=== PATIENT | female | born 1945 | race Caucasian/White ===

== ENCOUNTER 2016-04-22 12:55 | Inpatient (IN) | payer MEDICAID ==
[~2016-04-22] VITALS: Ht 160 cm; Wt 64.4 kg
[~2016-04-22 12:55] MED LIST: CARAS PO; DOCU-144 PO; LAS20I PO; LISI-524 PO; PANT40TA4 PO; SPIR50TA PO
--- NOTE | 2016-04-22 13:05 | ERA ---
ER Documentation Chief Complaint Date/Time DATE: 04/22/16 TIME: 13:04 Chief Complaint SOB AND GENERALIZED WEAKNESS X 3 DAYS HPI The patient is 70-year-old female, presenting to the ER because of shortness of breath for the last 3 weeks, associated with leg edema, dyspnea on exertion, fatigue for the last 3 days. She has similar symptoms previously. He was seen in the clinic 3 days ago for similar symptoms and advised to go to the ER. She denies fever, nasal congestion, complains of chronic cough for more than 2 month , denies chest pain, abdominal pain, dysuria, diarrhea. She does not smoke, drink Past medical history: Hypertension, autoimmune cirrhosis, history of gastric ulcer, history of hepatic mass that is concerning for hepatocellular carcinoma on last admission August 2014, however she did not follow-up with her liver specialist Past surgical history: None ROS All systems reviewed and are negative except as per history of present illness. Medications Home Meds Active Scripts Pantoprazole (Protonix) 40 Mg Tabec, 40 MG PO BID for 30 Days, TAB Prov:SILVIANO PAREDES MD 08/16/14 Reported Medications Lisinopril* (Lisinopril*) 20 Mg Tablet, 20 MG PO DAILY, #30 TAB 04/22/16 Spironolactone* (Aldactone*) 50 Mg Tablet, 50 MG PO BID, #60 TAB 04/22/16 Furosemide* (Furosemide*) 20 Mg Tablet, 20 MG PO DAILY, #60 TAB 04/22/16 Discontinued Scripts Sucralfate* (Carafate*) 1 Gm/10 Ml Susp, 1 GM PO QID for 30 Days, BOTTLE Prov:SILVIANO PAREDES MD 08/16/14 Spironolactone* (Aldactone*) 50 Mg Tab, 100 MG PO BID DIURETICS for 30 Days, TAB Prov:SILVIAON PAREDES MD 08/16/14 Lisinopril* (Zestril*) 10 Mg Tab, 5 MG PO DAILY for 30 Days, TAB Prov:SILVIANO PAREDES MD 08/16/14 Furosemide* (Lasix*) 10 Mg/Ml Soln, 40 MG PO DAILY for 30 Days, TAB Prov:SILVIANO PAREDES MD 08/16/14 Docusate Sodium* (Colace*) 100 Mg Cap, 100 MG PO BID for 30 Days, TAB Prov:SILVIANO PAREDES MD 08/16/14 Allergies Allergies: Coded Allergies: No Known Allergy (Unverified , 04/22/16) PMhx/Soc History of Surgery: No Anesthesia Reaction: No Hx Neurological Disorder: No Hx Respiratory Disorders: No Hx Cardiac Disorders: Yes (HTN) Hx Psychiatric Problems: No Hx Miscellaneous Medical Probl: No Hx Alcohol Use: Yes Hx Substance Use: No Hx Tobacco Use: Yes Physical Exam Vitals Vital Signs Date Time Temp Pulse Resp B/P Pulse Ox O2 Delivery O2 Flow Rate FiO2 04/22/16 15:35 88 24 135/61 100 Nasal Cannula 2.0 04/22/16 13:35 Nasal Cannula 2 04/22/16 12:59 100.6 106 20 135/60 99 Physical Exam Const: No acute distress. Head: Atraumatic. Eyes: Normal Conjunctiva. ENT: Normal External Ears, Nose and Mouth. Neck: Full range of motion. No meningismus. Resp: Bibasilar crackles Cardio: Regular rate and rhythm, no murmurs. Abd: Soft, non distended, normal bowel sounds, non tender. Skin: No petechiae or rashes. Back: No midline or flank tenderness. Ext: Bilateral leg edema, no calf tenderness Neur: Awake and alert. No focal deficit Psych: Normal Mood and Affect. Result Diagram: 04/22/16 1330 04/22/16 1330 Results 24 hrs Laboratory Tests Test 04/22/16 13:30 04/22/16 13:55 04/22/16 15:15 Activated Partial Thromboplast Time 36.8Sec Alanine Aminotransferase (ALT/SGPT) 20IU/L Albumin 2.4g/dl Albumin/Globulin Ratio 0.66 Alkaline Phosphatase 108IU/L Anion Gap 13 Aspartate Amino Transf (AST/SGOT) 24IU/L B-Type Natriuretic Peptide 694PG/ML Basophils # 0.010^3/ul Basophils % 0.0% Blood Morphology Comment Blood Urea Nitrogen 10mg/dl Calcium Level 7.8mg/dl Carbon Dioxide Level 22mmol/L Chloride Level 110mmol/L Creatinine 0.45mg/dl Direct Bilirubin 0.00mg/dl Eosinophils # 0.010^3/ul Eosinophils % 0.0% Globulin 3.60g/dl Glucose Level 118mg/dl Hematocrit 15.6% Hemoglobin 4.7g/dl INR International Normalized Ratio 1.66 Indirect Bilirubin 0.6mg/dl Lactic Acid Level 3.4mmol/L 2.8mmol/L Lymphocytes # 0.410^3/ul Lymphocytes % 16.0% Mean Corpuscular Hemoglobin 20.0pg Mean Corpuscular Hemoglobin Concent 29.8g/dl Mean Corpuscular Volume 67.2fl Mean Platelet Volume 11.8fl Monocytes # 0.210^3/ul Monocytes % 8.0% Neutrophils # 1.910^3/ul Neutrophils % 76.0% Nucleated Red Blood Cells # 0.110^3/ul Nucleated Red Blood Cells % 4.6/100WBC Platelet Count 8510^3/UL Potassium Level 3.4mmol/L Prothrombin Time 19.7Sec Prothrombin Time Ratio 1.5 Red Blood Count 2.3210^6/ul Red Cell Distribution Width 18.8% Sodium Level 142mmol/L Total Bilirubin 0.6mg/dl Total Protein 6.0g/dl Troponin I 0.241ng/ml White Blood Count 2.510^3/ul Bedside Urine Blood Negative Bedside Urine Glucose (UA) Negative Bedside Urine Ketones (LAB) Negative Bedside Urine Leukocyte Esterase (L 1+ Bedside Urine Nitrite (LAB) Positive Bedside Urine Protein (LAB) 2+ Bedside Urine pH (LAB) 6.0 Current Medications Medications (Trade) Dose Ordered Sig/Fran Route PRN Reason Start Time Stop Time Status Last Admin Dose Admin Acetaminophen 650 mg 650 mg ONCE ONCE PO 04/22/16 13:30 04/22/16 13:31 DC 04/22/16 13:57 Piperacillin Sod/ Tazobactam Sod 100 ml @ 200 mls/hr ONCE ONCE IVPB 04/22/16 14:30 04/22/16 14:59 DC 04/22/16 14:38 Potassium Chloride/Sodium Chloride (KCl/NS) 110 ml @ 55 mls/hr ONCE ONCE IVPB 04/22/16 14:30 04/22/16 16:29 04/22/16 15:18 Furosemide 40 mg 40 mg ONCE ONCE IV 04/22/16 15:00 04/22/16 15:01 DC 04/22/16 14:55 Octreotide Acetate 1 mg/ Sodium Chloride 100 ml @ 5 mls/hr Q20H IV 04/22/16 15:00 04/22/16 15:18 Pantoprazole 80 mg/Sodium Chloride 100 ml @ 10 mls/hr Q10H IV 04/22/16 15:00 04/22/16 15:57 Pantoprazole 80 mg/Sodium Chloride 100 ml @ 400 mls/hr ONCE ONCE IVPB 04/22/16 15:00 04/22/16 15:14 DC 04/22/16 15:18 Pantoprazole 80 mg/Sodium Chloride 100 ml @ 400 mls/hr ONCE STAT IVPB 04/22/16 14:56 04/22/16 15:10 UNV Pantoprazole 80 mg/Sodium Chloride 100 ml @ 10 mls/hr ONCE STAT IV 04/22/16 14:56 04/23/16 00:55 UNV Octreotide Acetate 50 mcg/ Sodium Chloride 26 ml @ 100 mls/hr Q16M STAT IVPB 04/22/16 14:56 04/22/16 15:11 UNV Octreotide Acetate/Sodium Chloride (Sandostatin/NS) 50 ml @ 5 mls/hr ONCE STAT IV 04/22/16 14:56 04/23/16 00:55 UNV IV Flush (NS 3 ml) 3 ml PER PROTOCOL IV 04/22/16 15:30 Lorazepam (Ativan) 0.5 mg Q6H PRN IV ANXIETY 04/22/16 15:30 Acetaminophen/ Hydrocodone Bitart ([place] (5/325)) 1 tab Q6H PRN PO PAIN LEVEL 4-6 04/22/16 15:30 Morphine Sulfate (morphine) 2 mg Q4H PRN IV PAIN LEVEL 7-10 04/22/16 15:30 Hydralazine HCl (Apresoline) 10 mg Q6H PRN IV SBP>160 04/22/16 16:00 Lisinopril (Zestril) 20 mg DAILY PO 04/23/16 09:00 Spironolactone (Aldactone) 50 mg BID PO 04/22/16 21:00 Furosemide 20 mg 20 mg BID DIURETICS IV 04/22/16 18:00 Ceftriaxone Sodium 50 ml @ 100 mls/hr Q24H IVPB 04/22/16 16:30 Octreotide Acetate 1 mg/ Sodium Chloride 100 ml @ 5 mls/hr Q20H IV 04/22/16 16:30 UNV Pantoprazole/ Sodium Chloride (Protonix Iv/NS) 100 ml @ 10 mls/hr Q10H IV 04/22/16 16:30 UNV Procedures/MDM EKG: Read by emergency physician Rate/Rhythm: Sinus tachycardia 109 beats per min QRS, ST, T-waves: Inferior lateral ST and T abnormality, no PVCs Impression: Abnormal EKG [place] [id number] Radiology Main Line: [phone] DIAGNOSTIC IMAGING REPORT Patient: TYSHAWN BOLES : 1945 Age: 70 Sex: F MR #: [id number] DOS: 04/22/16 1322 Ordering MD: CHIQUITA LEVY MD Location: E/R Room/Bed: PROCEDURE: XR Chest. CLINICAL INDICATION: Sepsis TECHNIQUE: Single AP portable chest COMPARISON: 09/22/2014 FINDINGS: The cardiac silhouette is enlarged with vascular congestion. This has accentuated by hypo ventilatory changes. . No focal consolidation or pleural effusion. No pneumothorax. Elevation right hemidiaphragm. The osseous structures and soft tissues are unremarkable. IMPRESSION: Cardiomegaly and vascular congestion. Superimposed infiltrate cannot be excluded. RPTAT:AAJJ Physician Adali Date Time Electronically viewed and signed by Physician Adali on 04/22/2016 14:17 FLAQUITO/ CC: CHIQUITA LEVY MD MEDICAL MAKING DECISION: The patient is a 70-year-old female, presenting to the ER because of acute severe sepsis, acute CHF exacerbation, acute GI bleed, pancytopenia, acute hypokalemia, acute cystitis, coagulopathy. She was treated with Tylenol and for fever upon arrival to the ER. She was treated with 4 units of packed red blood cell due to severe anemia from acute GI bleed. I have ordered to administer Lasix 40 mg IV after each unit of packed red blood cell. She was treated with potassium chloride 20 medical and IV for low potassium, Zosyn IV due to acute severe sepsis from acute cystitis. She was treated with Protonix IV bolus and Protonix drip, octreotide IV bolus and octreotide drip due to probable acute GI bleed. The differential diagnoses considered include but are not limited to pneumonia, pyelonephritis, septic shock. Consultation: I discussed the patient with the on-call gas booster engineer Dr. Yao was made aware of the lab, the treatment, the patient condition and agreed with the plan Admit MDM: Patient's infectious symptoms have not stabilized and the patient is at risk of rapid decompensation. The patient will be admitted for careful hydration, antibiotic therapy, and infectious source control. Severe Sepsis criteria: Infectious source: UTI End organ damage indicated by: Lactate > 2.0 mmol/L Sepsis Management: Time of recognition of severe sepsis/septic shock:Upon arrival Within 3 hours of recognition: Blood cultures x 2 before broad-spectrum antibiotics: Yes 30 ml/kg NS bolus not completed because of acute CHF Initial lactate 3.4 Repeat lactate pending Critical Care: Critical care time 35 minutes Emergent fluid management while maintaining close respiratory support. Provision of immediate and broad-spectrum antibiotic therapy. Simultaneous assessment for possible sources in order to direct targeted therapy. Consideration for invasive and chemical support to prevent cardiopulmonary collapse. Septic Shock Assessment: Any lactic acid > 4.0 no Persistent hypotension (SBP < 90 or 40 mmHg drop, MAP < 65) despite 30 mL/kg IV fluid bolusno Departure Diagnosis: Primary Impression: Acute GI bleeding Additional Impressions: Severe sepsis UTI (urinary tract infection) CHF (congestive heart failure) Hypokalemia Pancytopenia Coagulopathy Condition: Critical Comments I discussed the findings with the patient. I discussed the patient with the on- call hospitalist Dr. Doyle who was made aware of the lab, the treatment, the patient condition and my discussion with the gastroenterology. The patient is admitted to ICU at 2:30 PM CHIQUITA LEVY MD Apr 22, 2016 13:05
[2016-04-22] MEDS ORDERED: ACETAMINOPHEN 325 MG TAB PO ONE (13:30)
[2016-04-22] MEDS ORDERED: FURO20TA3 PO (13:48)
[2016-04-22] MEDS ORDERED: SPIR50TA PO (13:49)
[2016-04-22] MEDS ORDERED: LISI20TA11 PO (13:50)
[2016-04-22 13:52] LABS: HEMATOCRIT 15.6 % (37.0-47.0); MEAN CORPUSCULAR HGB CONC 29.8 g/dl (32.0-37.0); MEAN CORPUSCULAR VOLUME 67.2 fl (82.0-101.0); MEAN PLATELET VOLUME 11.8 fl (7.4-10.4); MONOCYTE # 0.2 10^3/ul (0.3-0.9); NUCLEATED RED BLOOD CELLS% 4.6 /100WBC (0.0-0.0); PLATELET COUNT 85 10^3/UL (140-440); RED BLOOD COUNT 2.32 10^6/ul (4.20-5.40); RED CELL DISTRIBUTION WIDTH 18.8 % (11.5-14.5); UNCORRECTED WBC 2.5 10^3/ul (4.8-10.8); WHITE BLOOD COUNT 2.5 10^3/ul (4.8-10.8)
[2016-04-22 13:54] LABS: URINE BLOOD (Dip) POC Negative (NEGATIVE)
[2016-04-22 14:01] LABS: INR 1.66; PROTIME 19.7 Sec (12.2-14.2); PT RATIO 1.5
[2016-04-22 14:02] LABS: PARTIAL THROMBOPLASTIN TIME 36.8 Sec (25.0-35.0)
[2016-04-22 14:09] LABS: ALBUMIN 2.4 g/dl (3.3-4.9)
[2016-04-22 14:10] LABS: CONDITION 1; HEMOGLOBIN 4.7 g/dl (12.0-16.0); LH ANALYZER COMMENTS 1; NUCLEATED RED BLOOD CELLS # 0.1 10^3/ul (0.0-0.0); POTASSIUM 3.4 mmol/L (3.5-5.1); SUSPECT 1
[2016-04-22 14:12] LABS: ALBUMIN/GLOBULIN RATIO 0.66; BILIRUBIN,INDIRECT 0.6 mg/dl (0-1.1); BILIRUBIN,TOTAL 0.6 mg/dl (0.2-1.3); CALCIUM 7.8 mg/dl (8.4-10.2); CREATININE 0.45 mg/dl (0.44-1.00)
--- NOTE | 2016-04-22 14:18 | RADRPT ---
PROCEDURE: XR Chest. CLINICAL INDICATION: Sepsis TECHNIQUE: Single AP portable chest COMPARISON: 09/22/2014 FINDINGS: The cardiac silhouette is enlarged with vascular congestion. This has accentuated by hypo ventilato ry changes. . No focal consolidation or pleural effusion. No pneumothorax. Elevation right hemidi aphragm. The osseous structures and soft tissues are unremarkable. IMPRESSION: Cardiomegaly and vascular congestion. Superimposed infiltrate cannot be excluded. RPTAT:AAJJ Physician Adali Date Time Electronically viewed and signed by Physician Adali on 04/22/2016 14:17 FLAQUITO/
[2016-04-22 14:27] LABS: TROPONIN-I 0.241 ng/ml (0.00-0.12)
[2016-04-22] MEDS ORDERED: PIPER-TAZO 3.375 GM IV (PMX) 100 ML IVPB ONE (14:30)
[2016-04-22] MEDS ORDERED: POTASSIUM CHLORIDE 20 MEQ in SOD CHLORIDE 0.9% 100 ML IVPB ONE (14:30)
[2016-04-22] MEDS ORDERED: PANTOPRAZOLE IV 80 MG in SOD CHLORIDE 0.9% 100 ML IV STA (14:56)
[2016-04-22] MEDS ORDERED: PANTOPRAZOLE IV 80 MG in SOD CHLORIDE 0.9% 100 ML IVPB STA (14:56)
[2016-04-22] MEDS ORDERED: OCTREOTIDE 50 MCG in SOD CHLORIDE 0.9% 25 ML IVPB STA (14:56)
[2016-04-22] MEDS ORDERED: OCTREOTIDE 500 MCG in SOD CHLORIDE 0.9% 49 ML IV STA (14:56)
[2016-04-22] MEDS ORDERED: PANTOPRAZOLE IV 80 MG in SOD CHLORIDE 0.9% 100 ML IVPB ONE (15:00)
[2016-04-22] MEDS ORDERED: FUROSEMIDE 40 MG INJ IV ONE (15:00)
[2016-04-22 15:09] LABS: LYMPHOCYTES # 0.4 10^3/ul (0.8-2.9); NEUTROPHIL # 1.9 10^3/ul (1.6-7.5)
[2016-04-22] MEDS: OCTREOTIDE 1 MG in SOD CHLORIDE 0.9% 95 ML IV SCH (15:18)
[2016-04-22] MEDS ORDERED: NACL 0.9% 3 ML SYG IV SCH (15:30)
[2016-04-22] MEDS ORDERED: LORAZEPAM 2 MG INJ IV PRN (15:30)
[2016-04-22] MEDS ORDERED: HYDROCODONE/APAP (5/325) TAB PO PRN (15:30)
[2016-04-22] MEDS ORDERED: morphine 2 MG INJ IV PRN (15:30)
[2016-04-22] MEDS: PANTOPRAZOLE IV 80 MG in SOD CHLORIDE 0.9% 100 ML IV SCH (15:57)
--- NOTE | 2016-04-22 16:02 | CONS ---
Date/Time of Note Date/Time of Note DATE: 04/22/16 TIME: 15:55 Assessment/Plan Assessment/Plan Additional Assessment/Plan Acute anemia * EGD with Dr. Yao once cardiac clearance is obtained * Monitor hemoglobin every 6 hours, transfuse 2 units for hemoglobin less than 7.5 * Continue Protonix and octreotide drips * Stool OB 2 * Sp Colonoscopy 08/15/2014, results: * Questionable proctitis versus preparation artifact. Biopsies obtained. * Mild diverticulosis, left side of the colon. * Moderate-sized internal hemorrhoids. * Sp EGD 08/14/2014, results: * Grade 1/4 esophageal varices. * Multiple gastric ulcers, body and antrum of the stomach. Benign endoscopic appearance, no evidence of recent bleeding. Hypertension Further recommendations depend on clinical course Patient seen in collaboration with Dr. Yao Consultation Date/Type/Reason Admit Date/Time Type of Consultation: Gastroenterology Reason for Consultation Severe anemia Hx of Present Illness 62-year-old female resented to ED with reports of chest pain, and lethargy since 4 AM in the morning. Per patient's daughter, patient went to clinic and advised to follow-up in the emergency room due to low hemoglobin. Patient presented in the a.m. after experiencing intense chest pain and weakness. Denies previous episode. Patient denies melena, abdominal pain, nausea, vomiting, alcohol use, hematuria, and hematemesis. Patient denies previous colonoscopy. Patient with past medical history of hypertension that is controlled with medication. Denies other chronic condition. Recommend EGD after cardiac clearance obtained. Patient advised of risks/benefits/ alternatives of procedure and patient and patient's daughter are agreeable to proceed. Past Medical History Medical History: hypertension Social History Smoking Status: Current some day smoker Exam/Review of Systems Vital Signs Vitals Vital Signs Date Time Temp Pulse Resp B/P Pulse Ox O2 Delivery O2 Flow Rate FiO2 04/22/16 15:35 88 24 135/61 100 Nasal Cannula 2.0 04/22/16 12:59 100.6 Exam Constitutional: alert, oriented, well developed Psych: nl mood/affect Head: normocephalic Eyes: EOMI ENMT: nl external ears & nose, nl lips & teeth, nl nasal mucosa & septum Respiratory: normal air movement Cardiovascular: regular rate and rhythm Gastrointestinal: non-tender, soft Neurological: JOB DEVELOPER II-XII intact Results Result Diagram: 04/22/16 1330 04/22/16 1330 Results 24 hrs Laboratory Tests Test 04/22/16 13:30 04/22/16 13:55 04/22/16 15:15 Activated Partial Thromboplast Time 36.8 H Alanine Aminotransferase (ALT/SGPT) 20 Albumin 2.4 L Albumin/Globulin Ratio 0.66 Alkaline Phosphatase 108 Anion Gap 13 Aspartate Amino Transf (AST/SGOT) 24 B-Type Natriuretic Peptide 694 H Basophils # Pending Basophils % Pending Blood Morphology Comment Blood Urea Nitrogen 10 Calcium Level 7.8 L Carbon Dioxide Level 22 Chloride Level 110 Creatinine 0.45 Direct Bilirubin 0.00 Eosinophils # Pending Eosinophils % Pending Globulin 3.60 H Glucose Level 118 Hematocrit 15.6 #L Hemoglobin 4.7 #*L INR International Normalized Ratio 1.66 Indirect Bilirubin 0.6 Lactic Acid Level 3.4 H 2.8 H Lymphocytes # 0.4 L Lymphocytes % 16.0 Mean Corpuscular Hemoglobin 20.0 #L Mean Corpuscular Hemoglobin Concent 29.8 L Mean Corpuscular Volume 67.2 #L Mean Platelet Volume 11.8 H Monocytes # 0.2 L Monocytes % 8.0 Neutrophils # 1.9 Neutrophils % 76.0 Nucleated Red Blood Cells # 0.1 H Nucleated Red Blood Cells % 4.6 H Platelet Count 85 L Potassium Level 3.4 L Prothrombin Time 19.7 H Prothrombin Time Ratio 1.5 Red Blood Count 2.32 #L Red Cell Distribution Width 18.8 H Sodium Level 142 Total Bilirubin 0.6 Total Protein 6.0 L Troponin I 0.241 *H White Blood Count 2.5 #L Bedside Urine Blood Negative Bedside Urine Glucose (UA) Negative Bedside Urine Ketones (LAB) Negative Bedside Urine Leukocyte Esterase (L 1+ H Bedside Urine Nitrite (LAB) Positive H Bedside Urine Protein (LAB) 2+ H Bedside Urine pH (LAB) 6.0 Medications Medications Current Medications Potassium Chloride 20 meq/ Sodium Chloride 110 ml @ 55 mls/hr ONCE ONCE IVPB Last administered on 04/22/16 15:18; Admin Dose 55 MLS/HR; Start 04/22/16 at 14 :30; Stop 04/22/16 at 16:29 Octreotide Acetate 1 mg/ Sodium Chloride 100 ml @ 5 mls/hr Q20H IV Last administered on 1/24/17at 15:18; Admin Dose 5 MLS/HR; Start 04/22/16 at 15:00 Pantoprazole/ Sodium Chloride (Protonix Iv/NS) 100 ml @ 10 mls/hr Q10H IV ; Start 04/22/16 at 15:00 Lorazepam (Ativan) 0.5 mg Q6H PRN IV ANXIETY; Start 04/22/16 at 15:30 Acetaminophen/ Hydrocodone Bitart ([place] (5/325)) 1 tab Q6H PRN PO PAIN LEVEL 4 -6; Start 04/22/16 at 15:30 Morphine Sulfate (morphine) 2 mg Q4H PRN IV PAIN LEVEL 7-10; Start 04/22/16 at 15:30 Hydralazine HCl (Apresoline) 10 mg Q6H PRN IV SBP>160; Start 04/22/16 at 16:00 Lisinopril (Zestril) 20 mg DAILY PO ; Start 04/23/16 at 09:00 Spironolactone (Aldactone) 50 mg BID PO ; Start 04/22/16 at 21:00 OSMEL YAO MD Apr 22, 2016 16:02
[2016-04-22] MEDS ORDERED: PANTOPRAZOLE IV 80 MG in SOD CHLORIDE 0.9% 100 ML IV SCH (16:30)
[2016-04-22] MEDS ORDERED: OCTREOTIDE 1 MG in SOD CHLORIDE 0.9% 95 ML IV SCH (16:30)
[2016-04-22 16:42] LABS: HEMOGLOBIN 5.1 g/dl (12.0-16.0)
--- NOTE | 2016-04-22 17:13 | RADRPT ---
PROCEDURE: Ultrasound of the bilateral lower extremity venous system. CLINICAL INDICATION: Bilateral leg pain and swelling, deep venous thrombosis TECHNIQUE: Lopez scale with and without compression, color doppler, spectral doppler of the venous system of the bilateral lower extremities was performed. Venous augmentation maneuvers were utilized . COMPARISON: No prior studies are available for comparison. FINDINGS: RIGHT: Common femoral vein: Patent. Superficial femoral vein: Patent. Popliteal vein: Patent. Calf veins: Patent. No soft tissue abnormalities are identified. LEFT: Common femoral vein: Patent. Superficial femoral vein: Patent. Popliteal vein: Patent. Calf veins: Patent. No soft tissue abnormalities are identified. IMPRESSION: No evidence of a deep vein thrombosis within the bilateral lower extremities. RPTAT: AADD .Bert Nj MD, Date Time Electronically viewed and signed by .Bert Nj MD, on 04/22/2016 17:13 .B/
--- NOTE | 2016-04-22 17:44 | RADRPT ---
Echocardiogram Report Patient Name: TYSHAWN BOLES Gender: Female Date: 1945 Study Date: 22-Apr-2016 Document Control Assistant: Shaan Deluca RDCS Location: [facility] Ref. Physician: SAMUEL HELMS Quality: Technically Difficult Study Procedures: Transthoracic echocardiogram with complete 2D, M-Mode, and doppler examination. Indications: Chest Pain. 2D/M Mode Doppler Measurement Value Normal Ranges Measurement Value Normal Ranges LVIDd 2D 5.0 3.5 - 5.6 cm AV Peak Imtiaz 1.8 m/sec LVIDs 2D 2.9 2.1 - 4.1 cm AV Peak PG 13.0 mmHg FS 2D 42.3 % LVOT Peak Imtiaz 1.4 m/sec LVPWd 2D 1.0 0.6 - 1.1 cm LVOT Peak PG 8.0 mmHg IVSd 2D 0.8 0.6 - 1.1 cm MV E Peak Imtiaz 0.7 m/sec IVS/LVPW 2D 0.9 MV A Peak Imtiaz 1.0 m/sec AoR Diam 2D 2.4 2.0 - 3.7 cm MV E/A 0.7 LA/Ao 2D 2 0 - 1 MV Decel Time 162 msec EDV 2D 122.0 cm3 MV E/A 0.7 ESV 2D 23.4 cm3 TR Peak Imtiaz 2.7 m/sec LA Dimen 2D 4.1 2.3 - 4.0 cm TR Peak PG 30.0 mmHg RVSP 33.0 mmHg Findings Left Ventricle: Normal left ventricular systolic function. Normal left ventricular cavity size. Normal left ventricular wall thickness. Ejection fraction is visually estimated at 5560 %. Tissue Doppler/Mitral Doppler indices are consistent with impaired relaxation (Stage I diastolic dysfunction). Right Ventricle: Normal right ventricular size. Normal right ventricular systolic function. Left Atrium: There is mild enlargement of left atrium. Right Atrium: The right atrium is normal in size. Mitral Valve: Mitral valve leaflets appear mildly thickened. Mild mitral annular calcification. Trace mitral regurgitation. Aortic Valve: No hemodynamically significant aortic stenosis by doppler. Aortic cusps appear mildly calcified. Trace aortic valve regurgitation. Tricuspid Valve: Normal appearance of the tricuspid valve. Estimated peak PA systolic pressure 33 mmHg. There is trace tricuspid regurgitation. Pericardium: Normal pericardium with no significant pericardial effusion. Aorta: Normal aortic root. IVC: Normal size and normal respiratory collapse consistent with normal right atrial pressure. Conclusions 1.The left ventricle is normal in size and systolic function. 2.Estimated left ventricular ejection fraction of 55-60%. 3.Mild left ventricular diastolic dysfunction. 4.Mild left atrial enlargement. Electronically Signed By: Ezio Tang 22-Apr-2016 17:43:14 -0800 Patient Name: TYSHAWN BOLES Study Date: 22-Apr-[id number]
[2016-04-22] MEDS: CEFTRIAXONE 1 GM/50 ML (PMX) 50 ML IVPB SCH (18:02)
--- NOTE | 2016-04-22 18:02 | HP ---
DATE OF ADMISSION: 04/22/2016 TIME OF EVALUATION: 1515. REASON FOR ADMISSION: Dyspnea, chest pain, and generalized weakness. Symptomatic anemia. CONSULTANTS 1. Dr. Casey Yao, gastroenterology. 2. Dr. Ezio Tang, Cardiology. HISTORY OF PRESENT ILLNESS: This is a 70-year-old female with a past medical history of essential hypertension, autoimmune liver cirrhosis, esophageal varices, and gastric ulcers who came to the emergency room with chief complaint of dyspnea, generalized weakness and chest pain that has been going on since 04/18/2016. As per the patient, she went see her primary care physician on 04/18/2016. At that time, she was told that her hemoglobin level was low. However, the patient does not remember what exactly her hemoglobin level was. On 04/18/2016, the patient was instructed to go to the nearest emergency room. Nevertheless, the patient did not seek immediate medical attention on 04/18/2016 until she arrived at the [facility] Emergency Room. The patient was complaining of chest pain. The patient's chest pain was nonspecific. The patient was complaining of dyspnea that was more with exertion. She was also complaining of bilateral lower extremity edema. The patient denied any nausea or vomiting. She denied any hematemesis, hematochezia, or melena. She denied any fevers or chills. The patient's initial workup showed that the patient has a significant anemia with a hemoglobin and hematocrit of 4.7 and 15.6 respectively. The patient was also noted to have lactic acidosis. Patient's initial troponin was 0.241 with a BNP of 694. The patient's chest x-ray showed cardiomegaly and vascular congestion. The patient was also noticed to have a febrile episode with temperature 100.6 in the emergency room. In the emergency room, the patient was given a single dose of Zosyn and Lasix. She was started on a Protonix drip and octreotide drip. PAST MEDICAL HISTORY: Essential hypertension autoimmune, liver cirrhosis, gastric ulcer, esophageal varices. PAST SURGICAL HISTORY: Denies. HOME MEDICATIONS: 1. Carafate 1 g p.o. q.i.d. 2. Protonix 40 mg p.o. b.i.d. 3. Aldactone 100 mg p.o. b.i.d. 4. Lisinopril 5 mg p.o. daily. 5. Lasix 40 mg p.o. daily. 6. Colace 100 mg p.o. b.i.d. ALLERGIES: NO KNOWN DRUG ALLERGIES. SOCIAL HISTORY: The patient lives at home with her family. Denies any history of tobacco, alcohol or illicit drug use. REVIEW OF SYSTEMS: A 12-point review of systems reviewed and was negative other than what is mentioned in history of present illness. PHYSICAL EXAMINATION: VITAL SIGNS: Temperature 100.6, pulse rate 88, respiratory rate 24, blood pressure 135/61, oxygen saturation 100% on 2 liters of oxygen via nasal cannula. GENERAL: This is an elderly female patient lying in bed in mild to moderate respiratory distress. HEENT: Head normocephalic and atraumatic. Eyes: Anicteric sclerae. Conjunctivae clear. ENT: Nasal septum is midline. Oral mucosa is dry. NECK: Supple. JVD noticed at 45 degrees. RESPIRATORY: Bilaterally diminished breath sounds. Minimal use of accessory muscles of respiration. Bilateral fine rales heard at the bases. CARDIAC: Regular rate and rhythm. No obvious murmurs heard. ABDOMEN: Abdomen soft, nondistended. Bowel sounds hypoactive in all 4 quadrants. GENITOURINARY: Deferred. EXTREMITIES: No cyanosis, no clubbing. Bilateral lower extremity 2 to 3+ pitting edema. Peripheral pulses are palpable. NEUROLOGIC: The patient is awake, alert and oriented. Cranial nerves are grossly intact. LABORATORY AND DIAGNOSTIC DATA: WBC 2.5, hemoglobin 4.7, hematocrit 15.6, platelet count 85. Sodium 142, potassium 3.4, chloride 110, carbon dioxide 22, anion gap 13, BUN 10, creatinine 0.45, glucose 118. Calcium 7.8. Lactic acid 3.4. AST 24, ALT 20, alkaline phosphatase 208. Troponin 0.0241. BNP 694, total protein 6.0, albumin 2.4. PT 19.7, INR 1.26, PTT 36.8. Urinalysis: Urine nitrite positive, urine leukocyte esterase 1+. Chest x-ray: Cardiomegaly and vascular congestion. A superimposed infiltrate cannot be excluded. IMPRESSION: This is a 70-year-old female patient who came to the emergency room with multiple complaints and who was found to have evidence of significant anemia who will be admitted here for further treatment and evaluation. ASSESSMENT AND PLAN: 1. Symptomatic microcytic, hypochromic anemia. Etiology unclear. The patient has prior history of bleeding esophageal varices. However, the patient denied any active bleeding at this time. Nevertheless, since the patient has history of bleeding esophageal varices and gastric ulcers, the patient will be started on proton pump inhibitor drip. The patient will also be started on octreotide drip. The patient will be transfused with PRBCs. A stat gastroenterology consult will be called. 2. Systemic inflammatory response syndrome with tachycardia, febrile illness, lactic acidosis, and low WBC. Etiology unclear. The patient has no evidence of any septic shock. Branch cultures will be obtained. The patient was started on empiric antibiotics. 3. Coagulopathy with elevated INR and low platelet count. Most probably secondary to liver cirrhosis. The patient will be transfused with blood components as needed. Will avoid any anticoagulation on this patient. 4. Elevated troponins. The patient was complaining of nonspecific chest pain. The patient's elevated troponins could be from demand ischemia. Nevertheless, cardiology will be involved in the patient's case. A 2D echocardiogram will be obtained. Serial troponins will be obtained. The patient will not be started on any anticoagulation because of underlying severe anemia. 5. Possible underlying congestive heart failure exacerbation. Diastolic dysfunction. The patient's latest 2D echocardiogram from 08/10/2014 showed ejection fraction of 60% with stage I diastolic dysfunction. The patient's chest x-ray showing pulmonary vascular congestion. The patient's labs show a BNP of 694. The patient will be adequately diuresed. 6. Hypokalemia. The patient's potassium will be repleted. Plan. The patient will be admitted to the intensive care unit. The patient will remain n.p.o. except for medications. The patient will remain a FULL CODE. Activities will be bed rest. She will be started on deep venous thrombosis prophylaxis with bilateral sequential compression devices. The rest of the patient's management will be based on the clinical course, the results of diagnostic studies, and inputs from consultants. Based on the patient's clinical presentation, she most probably requires more than 2 midnights' stay for further management and evaluation of her clinical presentation. The case and management of this patient was fully discussed with Dr. Gonzalez. Approximately 60 minutes were spent on the history and physical of this patient. SAMUEL GONZALEZ MD, AM/ANNIE Conf#: [id number] DID#: [id number] MTDD
[2016-04-22] MEDS: FUROSEMIDE 20 MG INJ IV SCH (18:05)
[2016-04-22 18:46] LABS: CK-MB 0.57 ng/ml (0.0-2.4)
[2016-04-22 18:52] LABS: TROPONIN-I 0.276 ng/ml (0.00-0.12)
--- NOTE | 2016-04-22 19:28 | CONS ---
Date/Time of Note Date/Time of Note DATE: 04/22/16 TIME: 19:20 Assessment/Plan Assessment/Plan Chief Complaint/Hosp Course Assessment: Chest pain and shortness of breath - likely due to severe anemia NSTEMI - suspect type 2 Anemia Pancytopenia Hypertension Autoimmune hepatitis Liver cirrhosis with esophageal varices History of gastric ulcers Recommendations: -echocardiogram showed LVEF 55-60%, mild diastolic dysfunction -serial troponins -transfuse with goal hemoglobin >10, IV Lasix with transfusions -no antiplatelet or anticoagulant therapy given severe anemia and thrombocytopenia -follow up gastroenterology recommendations Problems: Consultation Date/Type/Reason Admit Date/Time Type of Consultation: Cardiology Reason for Consultation elevated troponin Referring Provider: SAMUEL HELMS NP Hx of Present Illness The patient is a 70 year-old female with autoimmune hepatitis and liver cirrhosis who presents with chest pain, shortness of breath, and generalized weakness. She has been found to have a hemoglobin of 4.7. She denies hematemesis , hematochezia, melena, other bleeding. Her troponin is mildly elevated at 0.241. She denies a history of ischemic heart disease. 14 point review of systems negative other than per HPI. Psychological: nl mood/affect Past Medical History Hypertension Autoimmune hepatitis Liver cirrhosis with esophageal varices Gastric ulcers Past Surgical History Past Surgical Hx: no surgical history Family History Significant Family History: no pertinent family hx Social History Alcohol Use: none Smoking Status: Never smoker Drug Use: none Exam/Review of Systems Vital Signs Vitals Vital Signs Date Time Temp Pulse Resp B/P Pulse Ox O2 Delivery O2 Flow Rate FiO2 04/22/16 17:40 97.7 85 23 123/55 96 Room Air 04/22/16 16:40 2.0 Exam Constitutional: alert, well developed Psych: nl mood/affect, no complaints Head: atraumatic, normocephalic Eyes: nl conjunctiva, nl lids ENMT: nl external ears & nose, nl nasal mucosa & septum Neck: non-tender, supple, No jvd Respiratory: clear to auscultation, normal air movement Cardiovascular: regular rate and rhythm Gastrointestinal: non-tender, soft Musculoskeletal: nl extremities to inspection Extremities: No clubbing, No cyanosis, No edema Results Result Diagram: 04/22/16 1610 04/22/16 1330 Results 24 hrs Laboratory Tests Test 04/22/16 13:30 04/22/16 13:55 04/22/16 15:15 04/22/16 16:10 Activated Partial Thromboplast Time 36.8 H Alanine Aminotransferase (ALT/SGPT) 20 Albumin 2.4 L Albumin/Globulin Ratio 0.66 Alkaline Phosphatase 108 Anion Gap 13 Aspartate Amino Transf (AST/SGOT) 24 B-Type Natriuretic Peptide 694 H Basophils # 0.0 Basophils % 0.0 Blood Morphology Comment Blood Urea Nitrogen 10 Calcium Level 7.8 L Carbon Dioxide Level 22 Chloride Level 110 Creatinine 0.45 Direct Bilirubin 0.00 Eosinophils # 0.0 Eosinophils % 0.0 Globulin 3.60 H Glucose Level 118 Hematocrit 15.6 #L 17.0 L Hemoglobin 4.7 #*L 5.1 *L INR International Normalized Ratio 1.66 Indirect Bilirubin 0.6 Lactic Acid Level 3.4 H 2.8 H 3.0 H Lymphocytes # 0.4 L Lymphocytes % 16.0 Mean Corpuscular Hemoglobin 20.0 #L Mean Corpuscular Hemoglobin Concent 29.8 L Mean Corpuscular Volume 67.2 #L Mean Platelet Volume 11.8 H Monocytes # 0.2 L Monocytes % 8.0 Neutrophils # 1.9 Neutrophils % 76.0 Nucleated Red Blood Cells # 0.1 H Nucleated Red Blood Cells % 4.6 H Platelet Count 85 L Potassium Level 3.4 L Prothrombin Time 19.7 H Prothrombin Time Ratio 1.5 Red Blood Count 2.32 #L Red Cell Distribution Width 18.8 H Sodium Level 142 Total Bilirubin 0.6 Total Protein 6.0 L Troponin I 0.241 *H White Blood Count 2.5 #L Bedside Urine Blood Negative Bedside Urine Glucose (UA) Negative Bedside Urine Ketones (LAB) Negative Bedside Urine Leukocyte Esterase (L 1+ H Bedside Urine Nitrite (LAB) Positive H Bedside Urine Protein (LAB) 2+ H Bedside Urine pH (LAB) 6.0 Test 04/22/16 18:25 Creatine Kinase 38 Creatine Kinase Index 1.5 Creatinine Kinase MB (Mass) 0.57 Troponin I 0.276 *H Medications Medications Current Medications Octreotide Acetate 1 mg/ Sodium Chloride 100 ml @ 5 mls/hr Q20H IV Last administered on 04/22/16t 15:18; Admin Dose 5 MLS/HR; Start 04/22/16 at 15:00 Pantoprazole/ Sodium Chloride (Protonix Iv/NS) 100 ml @ 10 mls/hr Q10H IV Last administered on 04/22/16 15:57; Admin Dose 10 MLS/HR; Start 04/22/16 at 15 :00 Lorazepam (Ativan) 0.5 mg Q6H PRN IV ANXIETY; Start 04/22/16 at 15:30 Acetaminophen/ Hydrocodone Bitart ([place] (5/325)) 1 tab Q6H PRN PO PAIN LEVEL 4 -6; Start 04/22/16 at 15:30 Morphine Sulfate (morphine) 2 mg Q4H PRN IV PAIN LEVEL 7-10; Start 04/22/16 at 15:30 Hydralazine HCl (Apresoline) 10 mg Q6H PRN IV SBP>160; Start 04/22/16 at 16:00 Lisinopril (Zestril) 20 mg DAILY PO ; Start 04/23/16 at 09:00 Spironolactone 50 mg 50 mg BID PO ; Start 04/22/16 at 21:00 Ceftriaxone Sodium (Rocephin) 50 ml @ 100 mls/hr Q24H IVPB Last administered on 04/22/16 18:02; Admin Dose 100 MLS/HR; Start 04/22/16 at 16:30 ALYX AVITIA MD Apr 22, 2016 19:27
[2016-04-22 19:45] VITALS: TEMP 97.6
[2016-04-22] MEDS: SPIRONOLACTONE 50 MG TAB PO SCH (20:54)
[2016-04-22 21:48] LABS: HEMATOCRIT 22.1 % (37.0-47.0)
[2016-04-22 21:51] LABS: HEMOGLOBIN 6.9 g/dl (12.0-16.0)
[2016-04-22 23:51] VITALS: Ht 160 cm; Wt 64.4 kg
[2016-04-23] VITALS (31 sets, daily range): BP systolic 122–174; BP diastolic 50–92; PULSE 74–94; RESP 16–27
[2016-04-23] MEDS: PANTOPRAZOLE IV 80 MG in SOD CHLORIDE 0.9% 100 ML IV SCH ×4 (01:57→23:22)
[2016-04-23 05:43] LABS: BASOPHILS % 0.5 % (0.0-2.0); EOSINOPHILS # 0.1 10^3/ul (0.0-0.5); EOSINOPHILS % 3.4 % (0.0-7.0); HEMATOCRIT 23.9 % (37.0-47.0); HEMOGLOBIN 7.7 g/dl (12.0-16.0); LYMPHOCYTES # 0.7 10^3/ul (0.8-2.9); LYMPHOCYTES % 18.8 % (15.0-51.0); MEAN CORPUSCULAR HEMOGLOBIN 23.5 pg (29.0-33.0); MEAN CORPUSCULAR HGB CONC 32.4 g/dl (32.0-37.0); MEAN CORPUSCULAR VOLUME 72.5 fl (82.0-101.0); MEAN PLATELET VOLUME 10.5 fl (7.4-10.4); MONOCYTE # 0.3 10^3/ul (0.3-0.9); MONOCYTES % 7.4 % (0.0-11.0); NEUTROPHIL # 2.6 10^3/ul (1.6-7.5); NEUTROPHILS % 69.9 % (39.0-77.0); PLATELET COUNT 67 10^3/UL (140-440); RED BLOOD COUNT 3.29 10^6/ul (4.20-5.40); RED CELL DISTRIBUTION WIDTH 20.4 % (11.5-14.5); UNCORRECTED WBC 3.7 10^3/ul (4.8-10.8); WHITE BLOOD COUNT 3.7 10^3/ul (4.8-10.8)
[2016-04-23 05:48] LABS: INR 1.62; PROTIME 19.4 Sec (12.2-14.2); PT RATIO 1.5
[2016-04-23 05:49] LABS: PARTIAL THROMBOPLASTIN TIME 36.5 Sec (25.0-35.0)
[2016-04-23 05:54] LABS: LACTIC ACID 1.7 mmol/L (0.5-2.2)
[2016-04-23 05:57] LABS: CONDITION 1; IRON 41 ug/dl (35-150); LH ANALYZER COMMENTS 1; NUCLEATED RED BLOOD CELLS # 0.1 10^3/ul (0.0-0.0); SUSPECT 1
[2016-04-23 05:59] LABS: CHOL/HDL RATIO 4.1 RATIO; MAGNESIUM 1.7 mg/dl (1.7-2.5); PHOSPHORUS 3.3 mg/dl (2.5-4.9)
[2016-04-23 06:02] LABS: ALBUMIN 2.3 g/dl (3.3-4.9)
[2016-04-23 06:03] LABS: POTASSIUM 3.4 mmol/L (3.5-5.1)
[2016-04-23 06:05] LABS: ALBUMIN/GLOBULIN RATIO 0.65; BILIRUBIN,INDIRECT 1.3 mg/dl (0-1.1); BILIRUBIN,TOTAL 1.3 mg/dl (0.2-1.3); CREATININE 0.46 mg/dl (0.44-1.00); TOTAL PROTEIN 5.8 g/dl (6.1-8.1)
[2016-04-23 06:06] LABS: CALCIUM 7.4 mg/dl (8.4-10.2); TOTAL IRON BINDING CAPACITY 284 ug/dl (241-421)
[2016-04-23 06:12] LABS: CK-MB 0.59 ng/ml (0.0-2.4)
[2016-04-23 06:29] LABS: THYROID STIMULATING HORMONE 0.756 MIU/L (0.465-4.680); TROPONIN-I 0.333 ng/ml (0.00-0.12)
[2016-04-23] MEDS: FUROSEMIDE 20 MG INJ IV SCH ×2 (06:52→18:00)
[2016-04-23] MEDS ORDERED: POTASSIUM CHLORIDE 250 ML IVPB ONE (07:30)
[2016-04-23] MEDS: SPIRONOLACTONE 50 MG TAB PO SCH ×2 (08:40→20:59)
[2016-04-23] MEDS: LISINOPRIL 20 MG TAB PO SCH (08:40)
[2016-04-23] MEDS ORDERED: SOD CHLORIDE 0.9% 250 ML IV* SCH (08:45)
[2016-04-23] MEDS: OCTREOTIDE 1 MG in SOD CHLORIDE 0.9% 95 ML IV SCH (08:45)
--- NOTE | 2016-04-23 08:48 | PN ---
Date/Time of Note Date/Time of Note DATE: 04/23/16 TIME: 08:44 Assessment/Plan VTE Prophylaxis VTE Prophylaxis Intervention: SCD's Lines/Catheters IV [facility]from [facility] [place] Urinary Cath still in place: No Assessment/Plan Chief Complaint/Hosp Course 1. Symptomatic microcytic, hypochromic anemia. Etiology unclear. The patient has prior history of bleeding esophageal varices and gastric ulcers. Continue Protonix and octreotide drip. Iron panel showing low iron saturation and low ferritin levels. Will start the patient on iron supplements. 2. Systemic inflammatory response syndrome with tachycardia, febrile illness, lactic acidosis, and low WBC. Etiology unclear. The patient has no evidence of any septic shock. Branch cultures pending. Continue empiric antibiotics. 3. Coagulopathy with elevated INR and low platelet count. Most probably secondary to liver cirrhosis. The patient will be transfused with blood components as needed. Will avoid any anticoagulation on this patient. 4. Elevated troponins. Most probably type II event. No antiplatelet therapy because of underlying severe anemia. 5. Congestive heart failure exacerbation. Acute on chronic. Diastolic dysfunction. Continue diuresis. 6. Liver cirrhosis. Continue diuretics. Ammonia level within normal limits. 7. Borderline elevated hemoglobin A1c. The patient ideally needs to be started on metformin. If the patient's blood glucose levels are running high, she will be started on sliding scale insulin. 8. Hypokalemia. Replete. 9. Fluids, electrolytes, and nutrition. Clear liquid diet. 10. DVT prophylaxis. Bilateral sequential compression devices. 11. Gastrointestinal prophylaxis. Proton pump inhibitors. 12. Plan. Transfuse 2 more units of PRBC. Replete potassium. Await esophagogastroduodenoscopy. Continue ICU monitoring. Case discussed with . Critical care time: 35 minutes. Problems: Subjective 24 Hr Interval Summary Free Text/Dictation Denies any chest pain or dyspnea. Exam/Review of Systems Vital Signs Vitals Vital Signs Date Time Temp Pulse Resp B/P Pulse Ox O2 Delivery O2 Flow Rate FiO2 04/23/16 07:00 98.0 89 17 157/68 96 Room Air 04/22/16 16:40 2.0 Intake and Output 04/22/16 04/22/16 04/23/16 15:00 23:00 07:00 Intake Total 350 ml 190 ml Output Total 700 ml Balance 350 ml -510 ml Exam GENERAL: This is an elderly female patient lying in bed in no apparent distress. HEENT: Head normocephalic and atraumatic. Eyes: Anicteric sclerae. Conjunctivae clear. ENT: Nasal septum is midline. Oral mucosa is dry. NECK: Supple. No JVD noticed. RESPIRATORY: Bilaterally diminished breath sounds. No use of accessory muscles of respiration. CARDIAC: Regular rate and rhythm. No obvious murmurs heard. ABDOMEN: Abdomen soft, nondistended. Bowel sounds hypoactive in all 4 quadrants. GENITOURINARY: Deferred. EXTREMITIES: No cyanosis, no clubbing. Bilateral lower extremity 1+ pitting edema. Peripheral pulses are palpable. NEUROLOGIC: The patient is awake, alert and oriented. Cranial nerves are grossly intact. Results Result Diagram: 04/23/16 0440 04/23/16 0440 Results 24 hrs Laboratory Tests Test 04/22/16 13:30 04/22/16 13:55 04/22/16 15:15 04/22/16 16:10 Activated Partial Thromboplast Time 36.8 H Alanine Aminotransferase (ALT/SGPT) 20 Albumin 2.4 L Albumin/Globulin Ratio 0.66 Alkaline Phosphatase 108 Anion Gap 13 Aspartate Amino Transf (AST/SGOT) 24 B-Type Natriuretic Peptide 694 H Basophils # 0.0 Basophils % 0.0 Blood Morphology Comment Blood Urea Nitrogen 10 Calcium Level 7.8 L Carbon Dioxide Level 22 Chloride Level 110 Creatinine 0.45 Direct Bilirubin 0.00 Eosinophils # 0.0 Eosinophils % 0.0 Globulin 3.60 H Glucose Level 118 Hematocrit 15.6 #L 17.0 L Hemoglobin 4.7 #*L 5.1 *L INR International Normalized Ratio 1.66 Indirect Bilirubin 0.6 Lactic Acid Level 3.4 H 2.8 H 3.0 H Lymphocytes # 0.4 L Lymphocytes % 16.0 Mean Corpuscular Hemoglobin 20.0 #L Mean Corpuscular Hemoglobin Concent 29.8 L Mean Corpuscular Volume 67.2 #L Mean Platelet Volume 11.8 H Monocytes # 0.2 L Monocytes % 8.0 Neutrophils # 1.9 Neutrophils % 76.0 Nucleated Red Blood Cells # 0.1 H Nucleated Red Blood Cells % 4.6 H Platelet Count 85 L Potassium Level 3.4 L Prothrombin Time 19.7 H Prothrombin Time Ratio 1.5 Red Blood Count 2.32 #L Red Cell Distribution Width 18.8 H Sodium Level 142 Total Bilirubin 0.6 Total Protein 6.0 L Troponin I 0.241 *H White Blood Count 2.5 #L Bedside Urine Blood Negative Bedside Urine Glucose (UA) Negative Bedside Urine Ketones (LAB) Negative Bedside Urine Leukocyte Esterase (L 1+ H Bedside Urine Nitrite (LAB) Positive H Bedside Urine Protein (LAB) 2+ H Bedside Urine pH (LAB) 6.0 Test 04/22/16 18:25 04/22/16 21:40 04/23/16 04:40 Creatine Kinase 38 35 Creatine Kinase Index 1.5 1.7 Creatinine Kinase MB (Mass) 0.57 0.59 Troponin I 0.276 *H 0.333 *H Hematocrit 22.1 #L 23.9 L Hemoglobin 6.9 #*L 7.7 L Activated Partial Thromboplast Time 36.5 H Alanine Aminotransferase (ALT/SGPT) 26 Albumin 2.3 L Albumin/Globulin Ratio 0.65 Alkaline Phosphatase 99 Alpha Fetoprotein 2.99 Ammonia 23 Anion Gap 10 Aspartate Amino Transf (AST/SGOT) 25 Basophils # 0.0 Basophils % 0.5 Blood Morphology Comment Blood Urea Nitrogen 6 L Calcium Level 7.4 L Carbon Dioxide Level 25 Chloride Level 108 Cholesterol Level 71 L Cholesterol/HDL Ratio 4.1 Creatinine 0.46 Direct Bilirubin 0.00 Eosinophils # 0.1 Eosinophils % 3.4 Ferritin 7.8 L Free Thyroxine 1.41 Globulin 3.50 H Glucose Level 101 HDL Cholesterol 17 L Hemoglobin A1c 6.7 H INR International Normalized Ratio 1.62 Indirect Bilirubin 1.3 H Iron Level 41 LDL Cholesterol, Calculated 44 Lactic Acid Level 1.7 Lymphocytes # 0.7 L Lymphocytes % 18.8 Magnesium Level 1.7 Mean Corpuscular Hemoglobin 23.5 L Mean Corpuscular Hemoglobin Concent 32.4 Mean Corpuscular Volume 72.5 L Mean Platelet Volume 10.5 H Monocytes # 0.3 Monocytes % 7.4 Neutrophils # 2.6 Neutrophils % 69.9 Nucleated Red Blood Cells # 0.1 H Nucleated Red Blood Cells % 3.0 H Percent Iron Saturation 14 L Phosphorus Level 3.3 Platelet Count 67 #L Potassium Level 3.4 L Prothrombin Time 19.4 H Prothrombin Time Ratio 1.5 Red Blood Count 3.29 #L Red Cell Distribution Width 20.4 H Sodium Level 140 Thyroid Stimulating Hormone (TSH) 0.756 Total Bilirubin 1.3 Total Iron Binding Capacity 284 Total Protein 5.8 L Triglycerides Level 48 White Blood Count 3.7 #L Medications Medications Current Medications Octreotide Acetate 1 mg/ Sodium Chloride 100 ml @ 5 mls/hr Q20H IV Last administered on 04/22/16 15:18; Admin Dose 5 MLS/HR; Start 04/22/16 at 15:00 Pantoprazole/ Sodium Chloride (Protonix Iv/NS) 100 ml @ 10 mls/hr Q10H IV Last administered on 04/23/16 01:57; Admin Dose 10 MLS/HR; Start 04/22/16 at 15 :00 Lorazepam (Ativan) 0.5 mg Q6H PRN IV ANXIETY; Start 04/22/16 at 15:30 Acetaminophen/ Hydrocodone Bitart ([place] (5/325)) 1 tab Q6H PRN PO PAIN LEVEL 4 -6; Start 04/22/16 at 15:30 Morphine Sulfate (morphine) 2 mg Q4H PRN IV PAIN LEVEL 7-10; Start 04/22/16 at 15:30 Hydralazine HCl (Apresoline) 10 mg Q6H PRN IV SBP>160; Start 04/22/16 at 16:00 Lisinopril (Zestril) 20 mg DAILY PO ; Start 04/23/16 at 09:00 Spironolactone 50 mg 50 mg BID PO Last administered on 04/22/16 20:54; Admin Dose 50 MG; Start 04/22/16 at 21:00 Ceftriaxone Sodium 50 ml @ 100 mls/hr Q24H IVPB Last administered on 18:02; Admin Dose 100 MLS/HR; Start 04/22/16 at 16:30 Potassium Chloride (KCl 40 MEQ/250 ML NS) 250 ml @ 62.5 mls/hr ONCE ONCE IVPB ; Start 04/23/16 at 07:30; Stop 04/23/16 at 11:29 SAMUEL HELMS NP Apr 23, 2016 08:48
[2016-04-23] MEDS ORDERED: POTASSIUM CHLORIDE 30 MEQ in DEXTROSE 5% 250 ML IVPB ONE (09:00)
[2016-04-23 10:10] LABS: HEMATOCRIT 24.6 % (37.0-47.0); HEMOGLOBIN 7.7 g/dl (12.0-16.0)
[2016-04-23] MEDS: FUROSEMIDE 40 MG INJ IV SCH ×2 (15:36→19:31)
[2016-04-23] MEDS: CEFTRIAXONE 1 GM/50 ML (PMX) 50 ML IVPB SCH (16:15)
[2016-04-23] MEDS: SOD FERRIC GLUC COMPLX 125 MG in SOD CHLORIDE 0.9% 100 ML IVPB SCH (16:15)
[2016-04-23] MEDS ORDERED: ETOMIDATE 20 MG INJ ONE (16:29)
[2016-04-23] MEDS ORDERED: MIDAZOLAM 1 MG/ML 2 ML INJ ONE (16:29)
[2016-04-23] MEDS ORDERED: LIDOCAINE 2% (SDV) 5 ML INJ ONE (17:35)
[2016-04-23] MEDS ORDERED: PROPOFOL 20 ML ONE (17:35)
--- NOTE | 2016-04-23 17:43 | CONS ---
Date/Time of Note Date/Time of Note DATE: 04/23/16 TIME: 17:41 Assessment/Plan Assessment/Plan Chief Complaint/Hosp Course Assessment: Chest pain and shortness of breath - likely due to severe anemia, now resolved with pRBC transfusions NSTEMI - suspect type 2 Anemia - status post pRBC transfusions Pancytopenia Hypertension Autoimmune hepatitis Liver cirrhosis with esophageal varices History of gastric ulcers Recommendations: -echocardiogram showed LVEF 55-60%, mild diastolic dysfunction -transfuse with goal hemoglobin >10 -no antiplatelet or anticoagulant therapy given severe anemia and thrombocytopenia -follow up gastroenterology recommendations, planned for endoscopy today Problems: Consultation Date/Type/Reason Admit Date/Time Apr 22, 2016 at 15:04 Initial Consult Date Type of Consultation: Cardiology 24 HR Interval Summary Free Text/Dictation No further chest pain or shortness of breath. Detailed Summary Additional Comments 14 point review of systems without changes. Exam/Review of Systems Vital Signs Vitals Vital Signs Date Time Temp Pulse Resp B/P Pulse Ox O2 Delivery O2 Flow Rate FiO2 04/23/16 16:45 84 155/71 98 Room Air 04/23/16 11:00 98.0 21 04/22/16 16:40 2.0 Intake and Output 04/22/16 04/22/16 04/23/16 15:00 23:00 07:00 Intake Total 350 ml 190 ml Output Total 700 ml Balance 350 ml -510 ml Exam Constitutional: alert, well developed Psych: nl mood/affect, no complaints Head: atraumatic, normocephalic Eyes: nl conjunctiva, nl lids ENMT: nl external ears & nose, nl nasal mucosa & septum Neck: non-tender, supple, No jvd Respiratory: clear to auscultation, normal air movement Cardiovascular: regular rate and rhythm Gastrointestinal: non-tender, soft Musculoskeletal: nl extremities to inspection Extremities: No clubbing, No cyanosis, No edema Results Result Diagram: 04/23/16 1000 04/23/16 0440 Results 24 hrs Laboratory Tests Test 04/22/16 18:25 04/22/16 21:40 04/23/16 04:40 04/23/16 10:00 Creatine Kinase 38 35 Creatine Kinase Index 1.5 1.7 Creatinine Kinase MB (Mass) 0.57 0.59 Troponin I 0.276 *H 0.333 *H Hematocrit 22.1 #L 23.9 L 24.6 L Hemoglobin 6.9 #*L 7.7 L 7.7 L Activated Partial Thromboplast Time 36.5 H Alanine Aminotransferase (ALT/SGPT) 26 Albumin 2.3 L Albumin/Globulin Ratio 0.65 Alkaline Phosphatase 99 Alpha Fetoprotein 2.99 Ammonia 23 Anion Gap 10 Aspartate Amino Transf (AST/SGOT) 25 Basophils # 0.0 Basophils % 0.5 Blood Morphology Comment Blood Urea Nitrogen 6 L Calcium Level 7.4 L Carbon Dioxide Level 25 Chloride Level 108 Cholesterol Level 71 L Cholesterol/HDL Ratio 4.1 Creatinine 0.46 Direct Bilirubin 0.00 Eosinophils # 0.1 Eosinophils % 3.4 Ferritin 7.8 L Free Thyroxine 1.41 Globulin 3.50 H Glucose Level 101 HDL Cholesterol 17 L Hemoglobin A1c 6.7 H INR International Normalized Ratio 1.62 Indirect Bilirubin 1.3 H Iron Level 41 LDL Cholesterol, Calculated 44 Lactic Acid Level 1.7 Lymphocytes # 0.7 L Lymphocytes % 18.8 Magnesium Level 1.7 Mean Corpuscular Hemoglobin 23.5 L Mean Corpuscular Hemoglobin Concent 32.4 Mean Corpuscular Volume 72.5 L Mean Platelet Volume 10.5 H Monocytes # 0.3 Monocytes % 7.4 Neutrophils # 2.6 Neutrophils % 69.9 Nucleated Red Blood Cells # 0.1 H Nucleated Red Blood Cells % 3.0 H Percent Iron Saturation 14 L Phosphorus Level 3.3 Platelet Count 67 #L Potassium Level 3.4 L Prothrombin Time 19.4 H Prothrombin Time Ratio 1.5 Red Blood Count 3.29 #L Red Cell Distribution Width 20.4 H Sodium Level 140 Thyroid Stimulating Hormone (TSH) 0.756 Total Bilirubin 1.3 Total Iron Binding Capacity 284 Total Protein 5.8 L Triglycerides Level 48 White Blood Count 3.7 #L Medications Medications Current Medications Octreotide Acetate 1 mg/ Sodium Chloride 100 ml @ 5 mls/hr Q20H IV Last administered on 04/23/16 08:45; Admin Dose 5 MLS/HR; Start 04/22/16 at 15:00 Pantoprazole/ Sodium Chloride (Protonix Iv/NS) 100 ml @ 10 mls/hr Q10H IV Last administered on 04/23/16 11:45; Admin Dose 10 MLS/HR; Start 04/22/16 at 15 :00 Lorazepam (Ativan) 0.5 mg Q6H PRN IV ANXIETY; Start 04/22/16 at 15:30 Acetaminophen/ Hydrocodone Bitart ([place] (5/325)) 1 tab Q6H PRN PO PAIN LEVEL 4 -6; Start 04/22/16 at 15:30 Morphine Sulfate (morphine) 2 mg Q4H PRN IV PAIN LEVEL 7-10; Start 04/22/16 at 15:30 Hydralazine HCl (Apresoline) 10 mg Q6H PRN IV SBP>160; Start 04/22/16 at 16:00 Lisinopril (Zestril) 20 mg DAILY PO Last administered on 04/23/16 08:40; Admin Dose 20 MG; Start 04/23/16 at 09:00 Spironolactone 50 mg 50 mg BID PO Last administered on 04/23/16 08:40; Admin Dose 50 MG; Start 04/22/16 at 21:00 Ceftriaxone Sodium 50 ml @ 100 mls/hr Q24H IVPB Last administered on 16:15; Admin Dose 100 MLS/HR; Start 04/22/16 at 16:30 Sodium Chloride (NS) 250 ml @ 0 mls/hr Q0M IV* ; Start 04/23/16 at 08:45; Stop 04/23/16 at 23:00 Furosemide 20 mg 20 mg ONCE IV Last administered on 04/23/16 15:36; Admin Dose 20 MG; Start 04/23/16 at 09:00; Stop 04/23/16 at 23:00 Ferric Sodium Gluconate Complex/ Sodium Chloride (Ferrlecit/NS) 110 ml @ 100 mls/hr Q24H IVPB Last administered on 04/23/16 16:15; Admin Dose 100 MLS/HR; Start 04/23/16 at 10:00; Stop 04/25/16 at 11:05 ALYX AVITIA MD Apr 23, 2016 17:42
--- NOTE | 2016-04-23 19:31 | GILP ---
DATE OF PROCEDURE: NAME OF PROCEDURE: Esophagogastroduodenoscopy with biopsies. SURGEON: Casey Yao MD HISTORY AND INDICATIONS: The patient with severe anemia. PREMEDICATION: Monitored anesthesia care by anesthesiologist. INSTRUMENT USED: Olympus panendoscope. TECHNIQUE: After informed consent, with the patient/relatives understanding the procedure, its sraah cations, potential risks and complications, including but not limited to: allergic reaction, bleedin g, perforation or infection, and after all pertinent questions were answered to the patients satisfa ction, the patient/relatives signed witnessed informed consent. Following this, premedication was administered slowly IV push under careful cardiovascular and respi ratory monitoring with pulse oximetry, automatic blood pressure and marine engine machinist apprentice. Once the sedative effect was achieved the patient was place in the left lateral decubitus, the panen doscope was introduced and advanced under visual control. Careful examination of the upper gastrointestinal tract both on insertion as well as withdrawal of t he instrument disclosed the following findings: ESOPHAGUS: Essentially normal. There is no evidence of esophageal varices. STOMACH: Upon entrance to the stomach, air was insufflated. The gastric reno distended normally. There is atrophic appearance of the stomach. Biopsies were obtained of body of the stomach. The a ntrum shows erythema, edema and erosions. Biopsies were obtained as well. PYLORUS: The pylorus appears patent and within normal limits, with no evidence of gastric outlet ob struction. DUODENUM: The duodenal mucosa was carefully examined in the duodenal bulb as well as the second por tion of the duodenum and appears unremarkable with no evidence of duodenitis, ulcer or neoplasm. The instrument was then withdrawn. The patient tolerated the procedure well and was transferred out of the endoscopy suite awake and in good condition to continue recovery under observation IMPRESSION: 1. No evidence of esophageal varices. 2. Probable atrophic gastropathy. Biopsies obtained. 3. Erosive gastritis in the antrum. Biopsies obtained. PLAN: The patient will be treated with PPIs and Carafate. Consider colonoscopy once stable and leeanna ared from the cardiovascular point of view. Dictated By: CASEY YAO MS/ANNIE Conf#: [id number] DID#: [id number]
[2016-04-23] MEDS: hydrALAzine 20 MG INJ IV PRN (21:04)
[2016-04-24] VITALS (18 sets, daily range): BP systolic 100–176; BP diastolic 54–77; PULSE 69–94; RESP 10–20
[2016-04-24 05:06] LABS: BASOPHILS % 0.4 % (0.0-2.0); EOSINOPHILS # 0.1 10^3/ul (0.0-0.5); EOSINOPHILS % 2.1 % (0.0-7.0); HEMATOCRIT 32.5 % (37.0-47.0); HEMOGLOBIN 10.5 g/dl (12.0-16.0); LYMPHOCYTES # 0.6 10^3/ul (0.8-2.9); LYMPHOCYTES % 12.5 % (15.0-51.0); MEAN CORPUSCULAR HEMOGLOBIN 24.4 pg (29.0-33.0); MEAN CORPUSCULAR HGB CONC 32.3 g/dl (32.0-37.0); MEAN CORPUSCULAR VOLUME 75.4 fl (82.0-101.0); MEAN PLATELET VOLUME 9.9 fl (7.4-10.4); MONOCYTE # 0.5 10^3/ul (0.3-0.9); MONOCYTES % 10.3 % (0.0-11.0); NEUTROPHIL # 3.7 10^3/ul (1.6-7.5); NEUTROPHILS % 74.7 % (39.0-77.0); PLATELET COUNT 66 10^3/UL (140-440); RED BLOOD COUNT 4.31 10^6/ul (4.20-5.40); RED CELL DISTRIBUTION WIDTH 20.3 % (11.5-14.5); UNCORRECTED WBC 4.9 10^3/ul (4.8-10.8); WHITE BLOOD COUNT 4.9 10^3/ul (4.8-10.8)
[2016-04-24 05:26] LABS: MAGNESIUM 1.8 mg/dl (1.7-2.5); PHOSPHORUS 3.6 mg/dl (2.5-4.9)
[2016-04-24 05:56] LABS: TROPONIN-I 0.258 ng/ml (0.00-0.12)
[2016-04-24 06:02] LABS: CONDITION 1; LH ANALYZER COMMENTS 1; NUCLEATED RED BLOOD CELLS # 0.1 10^3/ul (0.0-0.0); SUSPECT 1
[2016-04-24] MEDS: FUROSEMIDE 20 MG INJ IV SCH ×2 (06:06→17:12)
[2016-04-24] MEDS: PANTOPRAZOLE IV 80 MG in SOD CHLORIDE 0.9% 100 ML IV SCH (07:00)
--- NOTE | 2016-04-24 08:39 | PN ---
Date/Time of Note Date/Time of Note DATE: 04/24/16 TIME: 08:35 Assessment/Plan VTE Prophylaxis VTE Prophylaxis Intervention: SCD's Lines/Catheters IV [facility]from [facility] [place] Urinary Cath still in place: No Assessment/Plan Chief Complaint/Hosp Course 1. Symptomatic microcytic, hypochromic anemia. Etiology unclear. EGDscopy showed no esophageal varices, but erosive gastritis. Continue PPI and Carafate. Will discontinue octreotide. Iron panel showing low iron saturation and low ferritin levels. Continue iron supplements. 2. S/P sepsis secondary to UTI with no evidence of any septic shock. Continue antibiotics. 3. Coagulopathy with elevated INR and low platelet count. Most probably secondary to liver cirrhosis. The patient will be transfused with blood components as needed. Will avoid any anticoagulation on this patient. 4. Elevated troponins. Most probably type II event. No antiplatelet therapy because of underlying severe anemia. 5. Congestive heart failure exacerbation. Acute on chronic. Diastolic dysfunction. Continue diuresis. 6. Liver cirrhosis. Continue diuretics. Ammonia level within normal limits. 7. Borderline elevated hemoglobin A1c. The patient ideally needs to be started on metformin. If the patient's blood glucose levels are running high, she will be started on sliding scale insulin. 8. Fluids, electrolytes, and nutrition. Will advance the diet to regular consistency diet. 9. DVT prophylaxis. Bilateral sequential compression devices. 10. Gastrointestinal prophylaxis. Proton pump inhibitors. 11. Plan. Advance diet. Discontinue octreotide. Transfer the patient to telemetry floor. Case discussed with . Critical care time: 35 minutes. Problems: Subjective 24 Hr Interval Summary Free Text/Dictation Denies any complaints. Exam/Review of Systems Vital Signs Vitals Vital Signs Date Time Temp Pulse Resp B/P Pulse Ox O2 Delivery O2 Flow Rate FiO2 04/24/16 07:00 81 16 146/63 99 Nasal Cannula 2.0 04/24/16 04:00 98.6 Intake and Output 04/23/16 04/23/16 04/24/16 15:00 23:00 07:00 Intake Total 0 ml 230 ml 20 ml Output Total 1175 ml 1900 ml 350 ml Balance -1175 ml -1670 ml -330 ml Exam GENERAL: This is an elderly female patient lying in bed in no apparent distress. HEENT: Head normocephalic and atraumatic. Eyes: Anicteric sclerae. Conjunctivae clear. ENT: Nasal septum is midline. Oral mucosa is dry. NECK: Supple. No JVD noticed. RESPIRATORY: Bilaterally diminished breath sounds. No use of accessory muscles of respiration. CARDIAC: Regular rate and rhythm. No obvious murmurs heard. ABDOMEN: Abdomen soft, nondistended. Bowel sounds hypoactive in all 4 quadrants. GENITOURINARY: Deferred. EXTREMITIES: No cyanosis, no clubbing. Bilateral lower extremity 1+ pitting edema. Peripheral pulses are palpable. NEUROLOGIC: The patient is awake, alert and oriented. Cranial nerves are grossly intact. Results Result Diagram: 04/24/16 0432 04/24/16 0432 Results 24 hrs Laboratory Tests Test 04/23/16 10:00 04/24/16 04:32 Hematocrit 24.6 L 32.5 #L Hemoglobin 7.7 L 10.5 #L Alanine Aminotransferase (ALT/SGPT) 23 Albumin 2.4 L Albumin/Globulin Ratio Pending Alkaline Phosphatase 97 Anion Gap 11 Aspartate Amino Transf (AST/SGOT) 25 B-Type Natriuretic Peptide 1140 H Basophils # 0.0 Basophils % 0.4 Blood Morphology Comment Blood Urea Nitrogen 8 Calcium Level 7.9 L Carbon Dioxide Level 28 Chloride Level 108 Creatinine 0.62 Direct Bilirubin 0.00 Eosinophils # 0.1 Eosinophils % 2.1 Globulin 3.90 H Glucose Level 100 Indirect Bilirubin 0.9 Lymphocytes # 0.6 L Lymphocytes % 12.5 L Magnesium Level 1.8 Mean Corpuscular Hemoglobin 24.4 L Mean Corpuscular Hemoglobin Concent 32.3 Mean Corpuscular Volume 75.4 L Mean Platelet Volume 9.9 Monocytes # 0.5 Monocytes % 10.3 Neutrophils # 3.7 Neutrophils % 74.7 Nucleated Red Blood Cells # 0.1 H Nucleated Red Blood Cells % 2.0 H Phosphorus Level 3.6 Platelet Count 66 L Potassium Level 4.2 Red Blood Count 4.31 # Red Cell Distribution Width 20.3 H Sodium Level 143 Total Bilirubin 0.9 Total Protein 6.3 Troponin I 0.258 *H White Blood Count 4.9 # Medications Medications Current Medications Pantoprazole/ Sodium Chloride (Protonix Iv/NS) 100 ml @ 10 mls/hr Q10H IV Last administered on 04/23/16t 23:22; Admin Dose 10 MLS/HR; Start 04/22/16 at 15 :00 Lorazepam (Ativan) 0.5 mg Q6H PRN IV ANXIETY; Start 04/22/16 at 15:30 Acetaminophen/ Hydrocodone Bitart ([place] (5/325)) 1 tab Q6H PRN PO PAIN LEVEL 4 -6; Start 04/22/16 at 15:30 Morphine Sulfate (morphine) 2 mg Q4H PRN IV PAIN LEVEL 7-10 Last administered on 04/23/16 23:28; Admin Dose 2 MG; Start 04/22/16 at 15:30 Hydralazine HCl (Apresoline) 10 mg Q6H PRN IV SBP>160 Last administered on 04/23 21:04; Admin Dose 10 MG; Start 04/22/16 at 16:00 Lisinopril (Zestril) 20 mg DAILY PO Last administered on 04/23/16 08:40; Admin Dose 20 MG; Start 04/23/16 at 09:00 Spironolactone 50 mg 50 mg BID PO Last administered on 04/23/16 20:59; Admin Dose 50 MG; Start 04/22/16 at 21:00 Ceftriaxone Sodium 50 ml @ 100 mls/hr Q24H IVPB Last administered on 16:15; Admin Dose 100 MLS/HR; Start 04/22/16 at 16:30 Ferric Sodium Gluconate Complex/ Sodium Chloride (Ferrlecit/NS) 110 ml @ 100 mls/hr Q24H IVPB Last administered on 04/23/16 16:15; Admin Dose 100 MLS/HR; Start 04/23/16 at 10:00; Stop 04/25/16 at 11:05 SAMUEL HELMS NP Apr 24, 2016 08:39 SAMUEL HELMS NP Apr 24, 2016 08:39
[2016-04-24] MEDS: SUCRALFATE 1 GM TAB PO SCH ×4 (09:10→20:29)
[2016-04-24] MEDS: SPIRONOLACTONE 50 MG TAB PO SCH ×2 (09:11→20:29)
[2016-04-24] MEDS: LISINOPRIL 20 MG TAB PO SCH (09:11)
[2016-04-24 09:30] LABS: ALBUMIN/GLOBULIN RATIO 0.6
[2016-04-24 09:31] LABS: ALBUMIN 2.3 g/dl (3.3-4.9); BILIRUBIN,INDIRECT 0.8 mg/dl (0-1.1); BILIRUBIN,TOTAL 0.8 mg/dl (0.2-1.3); CREATININE 0.59 mg/dl (0.44-1.00); POTASSIUM 3.8 mmol/L (3.5-5.1); TOTAL PROTEIN 6.1 g/dl (6.1-8.1)
--- NOTE | 2016-04-24 10:02 | RADRPT ---
PROCEDURE: XR Chest. CLINICAL INDICATION: Infiltrates. Sepsis. TECHNIQUE: AP supine portable chest. COMPARISON: 04/22/2016 FINDINGS: Cardiomegaly with prominent left ventricle. Increased vascular congestion and bilateral air space o pacities. Pulmonary edema versus pneumonia. Chronic elevation of the right hemidiaphragm. .The priya ngs are clear though pleural effusion or focal consolidation. No pneumothorax. The osseous structure s and soft tissues are unremarkable. IMPRESSION: Increasing bilateral airspace opacities. Pneumonia versus pulmonary edema. Correlate clinically. RPTAT:AAJJ Evelyne Marlow Physician Date Time Electronically viewed and signed by Physician Adali on 04/24/2016 10:01 FLAQUITO/
[2016-04-24] MEDS: SOD FERRIC GLUC COMPLX 125 MG in SOD CHLORIDE 0.9% 100 ML IVPB SCH (14:40)
--- NOTE | 2016-04-24 14:46 | CONS ---
Date/Time of Note Date/Time of Note DATE: 04/24/16 TIME: 14:42 Assessment/Plan Assessment/Plan Chief Complaint/Hosp Course Assessment: Chest pain and shortness of breath - likely due to severe anemia, now resolved with pRBC transfusions NSTEMI - suspect type 2 Anemia - unclear etiology, EGD negative for bleeding, status post pRBC transfusions Pancytopenia Hypertension Autoimmune hepatitis Liver cirrhosis Recommendations: -echocardiogram showed LVEF 55-60%, mild diastolic dysfunction -transfuse as needed to keep hemoglobin >10 -no antiplatelet or anticoagulant therapy given severe anemia and thrombocytopenia - as such and likely type 2 NSTEMI, no additional coronary evaluation at this time -follow up gastroenterology recommendations, patient optimized from cardiac standpoint to undergo colonoscopy if indicated Problems: Consultation Date/Type/Reason Admit Date/Time Apr 22, 2016 at 15:04 Type of Consultation: Cardiology 24 HR Interval Summary Free Text/Dictation EGD yesterday did not find evidence of bleeding or esophageal varices. Transfused a total of 4 units pRBC and hemoglobin now 10.5. No further chest pain or shortness of breath. Detailed Summary Additional Comments 14 point review of systems without changes. Exam/Review of Systems Vital Signs Vitals Vital Signs Date Time Temp Pulse Resp B/P Pulse Ox O2 Delivery O2 Flow Rate FiO2 04/24/16 12:26 91 04/24/16 11:47 98.3 16 165/72 99 Nasal Cannula 2.0 Intake and Output 04/23/16 04/23/16 04/24/16 15:00 23:00 07:00 Intake Total 0 ml 230 ml 20 ml Output Total 1175 ml 1900 ml 350 ml Balance -1175 ml -1670 ml -330 ml Exam Constitutional: alert, well developed Psych: nl mood/affect, no complaints Head: atraumatic, normocephalic Eyes: nl conjunctiva, nl lids ENMT: nl external ears & nose, nl nasal mucosa & septum Neck: non-tender, supple, No jvd Respiratory: clear to auscultation, normal air movement Cardiovascular: regular rate and rhythm Gastrointestinal: non-tender, soft Musculoskeletal: nl extremities to inspection Extremities: No clubbing, No cyanosis, No edema Results Result Diagram: 04/24/16 0432 04/24/16 0432 Results 24 hrs Laboratory Tests Test 04/24/16 04:32 Alanine Aminotransferase (ALT/SGPT) 26 Albumin 2.3 L Albumin/Globulin Ratio 0.60 Alkaline Phosphatase 92 Anion Gap 12 Aspartate Amino Transf (AST/SGOT) 26 B-Type Natriuretic Peptide 1140 H Basophils # 0.0 Basophils % 0.4 Blood Morphology Comment Blood Urea Nitrogen 8 Calcium Level 8.0 L Carbon Dioxide Level 25 Chloride Level 109 Creatinine 0.59 Direct Bilirubin 0.00 Eosinophils # 0.1 Eosinophils % 2.1 Globulin 3.80 H Glucose Level 98 Hematocrit 32.5 #L Hemoglobin 10.5 #L Indirect Bilirubin 0.8 Lymphocytes # 0.6 L Lymphocytes % 12.5 L Magnesium Level 1.8 Mean Corpuscular Hemoglobin 24.4 L Mean Corpuscular Hemoglobin Concent 32.3 Mean Corpuscular Volume 75.4 L Mean Platelet Volume 9.9 Monocytes # 0.5 Monocytes % 10.3 Neutrophils # 3.7 Neutrophils % 74.7 Nucleated Red Blood Cells # 0.1 H Nucleated Red Blood Cells % 2.0 H Phosphorus Level 3.6 Platelet Count 66 L Potassium Level 3.8 Red Blood Count 4.31 # Red Cell Distribution Width 20.3 H Sodium Level 142 Total Bilirubin 0.8 Total Protein 6.1 Troponin I 0.258 *H White Blood Count 4.9 # Medications Medications Current Medications Lorazepam (Ativan) 0.5 mg Q6H PRN IV ANXIETY; Start 04/22/16 at 15:30 Acetaminophen/ Hydrocodone Bitart ([place] (5/325)) 1 tab Q6H PRN PO PAIN LEVEL 4 -6; Start 04/22/16 at 15:30 Morphine Sulfate (morphine) 2 mg Q4H PRN IV PAIN LEVEL 7-10 Last administered on 04/23/16 23:28; Admin Dose 2 MG; Start 04/22/16 at 15:30 Hydralazine HCl (Apresoline) 10 mg Q6H PRN IV SBP>160 Last administered on 04/23 21:04; Admin Dose 10 MG; Start 04/22/16 at 16:00 Lisinopril (Zestril) 20 mg DAILY PO Last administered on 04/24/16 09:11; Admin Dose 20 MG; Start 04/23/16 at 09:00 Spironolactone 50 mg 50 mg BID PO Last administered on 04/24/16 09:11; Admin Dose 50 MG; Start 04/22/16 at 21:00 Ceftriaxone Sodium 50 ml @ 100 mls/hr Q24H IVPB Last administered on 16:15; Admin Dose 100 MLS/HR; Start 04/22/16 at 16:30 Ferric Sodium Gluconate Complex/ Sodium Chloride ([place]errlecit/NS) 110 ml @ 100 mls/hr Q24H IVPB Last administered on 04/24/16 14:40; Admin Dose 100 MLS/HR; Start 04/23/16 at 10:00; Stop 04/25/16 at 11:05 Pantoprazole (Protonix Iv) 40 mg BID@06,18 IV ; Start 04/24/16 at 18:00 Sucralfate (Carafate) 1 gm QID PO Last administered on 04/24/16 14:39; Admin Dose 1 GM; Start 04/24/16 at 09:00 ALYX AVITIA MD Apr 24, 2016 14:46
[2016-04-24] MEDS: PANTOPRAZOLE 40 MG INJ IV SCH (17:14)
[2016-04-24] MEDS: CEFTRIAXONE 1 GM/50 ML (PMX) 50 ML IVPB SCH (17:14)
--- NOTE | 2016-04-24 17:25 | CONS ---
Date/Time of Note Date/Time of Note DATE: 04/24/16 TIME: 17:21 Assessment/Plan Assessment/Plan Additional Assessment/Plan Acute anemia * Colonoscopy tomorrow * Monitor hemoglobin every 6 hours, transfuse 2 units for hemoglobin less than 7.5 * Continue Protonix and octreotide drips * Stool OB 2 * Sp Colonoscopy 08/15/2014, results: * Questionable proctitis versus preparation artifact. Biopsies obtained. * Mild diverticulosis, left side of the colon. * Moderate-sized internal hemorrhoids. * Sp EGD 08/14/2014, results: * Grade 1/4 esophageal varices. * Multiple gastric ulcers, body and antrum of the stomach. Benign endoscopic appearance, no evidence of recent bleeding. * Sp EGD 04-23-16: * No evidence of esophageal varices. * Probable atrophic gastropathy. Biopsies obtained. * Erosive gastritis in the antrum. Biopsies obtained. Hypertension Further recommendations depend on clinical course Patient seen in collaboration with Dr. Yao Consultation Date/Type/Reason Admit Date/Time Apr 22, 2016 at 15:04 Initial Consult Date Type of Consultation: Gastroenterology 24 HR Interval Summary Free Text/Dictation Hemoglobin stable EGD did not show overt signs of bleeding, advised patient same Colonoscopy planned for tomorrow to evaluate lower GI bleed Advised patient of risks/benefits/alternatives to procedure and she is agreeable to proceed Exam/Review of Systems Vital Signs Vitals Vital Signs Date Time Temp Pulse Resp B/P Pulse Ox O2 Delivery O2 Flow Rate FiO2 04/24/16 16:33 80 04/24/16 15:47 98.3 20 165/71 98 04/24/16 11:47 Nasal Cannula 2.0 Intake and Output 04/23/16 04/23/16 04/24/16 15:00 23:00 07:00 Intake Total 0 ml 230 ml 20 ml Output Total 1175 ml 1900 ml 350 ml Balance -1175 ml -1670 ml -330 ml Exam Constitutional: alert, oriented, well developed Psych: nl mood/affect Head: normocephalic Eyes: EOMI ENMT: nl external ears & nose, nl lips & teeth, nl nasal mucosa & septum Respiratory: normal air movement Cardiovascular: regular rate and rhythm Gastrointestinal: non-tender, soft Neurological: CLINICAL EVALUATOR II-XII intact Results Result Diagram: 1/26/17 0432 1/26/17 0432 Results 24 hrs Laboratory Tests Test 04/24/16 04:32 Alanine Aminotransferase (ALT/SGPT) 26 Albumin 2.3 L Albumin/Globulin Ratio 0.60 Alkaline Phosphatase 92 Anion Gap 12 Aspartate Amino Transf (AST/SGOT) 26 B-Type Natriuretic Peptide 1140 H Basophils # 0.0 Basophils % 0.4 Blood Morphology Comment Blood Urea Nitrogen 8 Calcium Level 8.0 L Carbon Dioxide Level 25 Chloride Level 109 Creatinine 0.59 Direct Bilirubin 0.00 Eosinophils # 0.1 Eosinophils % 2.1 Globulin 3.80 H Glucose Level 98 Hematocrit 32.5 #L Hemoglobin 10.5 #L Indirect Bilirubin 0.8 Lymphocytes # 0.6 L Lymphocytes % 12.5 L Magnesium Level 1.8 Mean Corpuscular Hemoglobin 24.4 L Mean Corpuscular Hemoglobin Concent 32.3 Mean Corpuscular Volume 75.4 L Mean Platelet Volume 9.9 Monocytes # 0.5 Monocytes % 10.3 Neutrophils # 3.7 Neutrophils % 74.7 Nucleated Red Blood Cells # 0.1 H Nucleated Red Blood Cells % 2.0 H Phosphorus Level 3.6 Platelet Count 66 L Potassium Level 3.8 Red Blood Count 4.31 # Red Cell Distribution Width 20.3 H Sodium Level 142 Total Bilirubin 0.8 Total Protein 6.1 Troponin I 0.258 *H White Blood Count 4.9 # Medications Medications Current Medications Lorazepam (Ativan) 0.5 mg Q6H PRN IV ANXIETY; Start 04/22/16 at 15:30 Acetaminophen/ Hydrocodone Bitart ([place] (5/325)) 1 tab Q6H PRN PO PAIN LEVEL 4 -6; Start 04/22/16 at 15:30 Morphine Sulfate (morphine) 2 mg Q4H PRN IV PAIN LEVEL 7-10 Last administered on 04/23/16 23:28; Admin Dose 2 MG; Start 04/22/16 at 15:30 Hydralazine HCl (Apresoline) 10 mg Q6H PRN IV SBP>160 Last administered on 04/23 21:04; Admin Dose 10 MG; Start 04/22/16 at 16:00 Lisinopril (Zestril) 20 mg DAILY PO Last administered on 04/24/16 09:11; Admin Dose 20 MG; Start 04/23/16 at 09:00 Spironolactone 50 mg 50 mg BID PO Last administered on 04/24/16 09:11; Admin Dose 50 MG; Start 04/22/16 at 21:00 Ceftriaxone Sodium 50 ml @ 100 mls/hr Q24H IVPB Last administered on 16:15; Admin Dose 100 MLS/HR; Start 04/22/16 at 16:30 Ferric Sodium Gluconate Complex/ Sodium Chloride ([place]errlecit/NS) 110 ml @ 100 mls/hr Q24H IVPB Last administered on 04/24/16 14:40; Admin Dose 100 MLS/HR; Start 04/23/16 at 10:00; Stop 04/25/16 at 11:05 Pantoprazole (Protonix Iv) 40 mg BID@06,18 IV ; Start 04/24/16 at 18:00 Sucralfate (Carafate) 1 gm QID PO Last administered on 04/24/16 14:39; Admin Dose 1 GM; Start 04/24/16 at 09:00 STEPHANIA OBANDO Apr 24, 2016 17:25
[2016-04-24] MEDS ORDERED: BISACODYL (EC) 5 MG TAB PO ONE ×2 (19:00→23:00)
[2016-04-24] MEDS ORDERED: MAGNESIUM CITRATE 300 ML BTL PO ONE (19:00)
[2016-04-24] MEDS ORDERED: POLYETHYLENE GLYCOL 3350 119 GM POWDER PO ONE ×2 (21:00→23:00)
[2016-04-24] MEDS: hydrALAzine 20 MG INJ IV PRN (22:53)
[2016-04-25] VITALS (19 sets, daily range): BP systolic 106–159; BP diastolic 40–69; PULSE 66–90; RESP 14–20
[2016-04-25] MEDS: PANTOPRAZOLE 40 MG INJ IV SCH ×2 (06:13→19:01)
[2016-04-25] MEDS: FUROSEMIDE 20 MG INJ IV SCH ×2 (06:14→19:02)
[2016-04-25 06:56] LABS: INR 1.73; PROTIME 20.4 Sec (12.2-14.2); PT RATIO 1.6
[2016-04-25 06:57] LABS: PARTIAL THROMBOPLASTIN TIME 40.3 Sec (25.0-35.0)
[2016-04-25 06:59] LABS: POTASSIUM 3.6 mmol/L (3.5-5.1)
[2016-04-25 07:02] LABS: CALCIUM 8.3 mg/dl (8.4-10.2); CREATININE 0.55 mg/dl (0.44-1.00)
[2016-04-25 07:08] LABS: EOSINOPHILS # 0.1 10^3/ul (0.0-0.5); EOSINOPHILS % 2.3 % (0.0-7.0); HEMATOCRIT 30.4 % (37.0-47.0); HEMOGLOBIN 10.1 g/dl (12.0-16.0); LYMPHOCYTES # 0.7 10^3/ul (0.8-2.9); LYMPHOCYTES % 12.2 % (15.0-51.0); MEAN CORPUSCULAR HEMOGLOBIN 25.1 pg (29.0-33.0); MEAN CORPUSCULAR HGB CONC 33.2 g/dl (32.0-37.0); MEAN CORPUSCULAR VOLUME 75.6 fl (82.0-101.0); MONOCYTE # 0.6 10^3/ul (0.3-0.9); MONOCYTES % 9.6 % (0.0-11.0); NEUTROPHIL # 4.5 10^3/ul (1.6-7.5); NEUTROPHILS % 75.9 % (39.0-77.0); PLATELET COUNT 59 10^3/UL (140-440); RED BLOOD COUNT 4.02 10^6/ul (4.20-5.40); RED CELL DISTRIBUTION WIDTH 20.1 % (11.5-14.5); UNCORRECTED WBC 5.9 10^3/ul (4.8-10.8); WHITE BLOOD COUNT 5.9 10^3/ul (4.8-10.8)
[2016-04-25 07:15] LABS: PHOSPHORUS 2.9 mg/dl (2.5-4.9)
[2016-04-25 07:16] LABS: MAGNESIUM 1.9 mg/dl (1.7-2.5); TROPONIN-I 0.152 ng/ml (0.00-0.12)
[2016-04-25 07:36] LABS: CONDITION 1; LH ANALYZER COMMENTS 1; SUSPECT 1
[2016-04-25] MEDS: SPIRONOLACTONE 50 MG TAB PO SCH ×2 (09:20→20:33)
[2016-04-25] MEDS: SUCRALFATE 1 GM TAB PO SCH ×4 (09:21→20:33)
[2016-04-25] MEDS: LISINOPRIL 20 MG TAB PO SCH (09:21)
--- NOTE | 2016-04-25 10:45 | PN ---
Date/Time of Note Date/Time of Note DATE: 04/25/16 TIME: 10:43 Assessment/Plan VTE Prophylaxis VTE Prophylaxis Intervention: SCD's Lines/Catheters IV [facility] Urinary Cath still in place: No Assessment/Plan Chief Complaint/Hosp Course 1. Symptomatic microcytic, hypochromic anemia. Etiology unclear. EGDscopy showed no esophageal varices, but erosive gastritis. Continue PPI and Carafate. Iron panel showing low iron saturation and low ferritin levels. Continue iron supplements. The patient scheduled for a colonoscopy today. 2. S/P sepsis secondary to UTI with no evidence of any septic shock. Continue antibiotics. 3. Coagulopathy with elevated INR and low platelet count. Most probably secondary to liver cirrhosis. The patient will be transfused with blood components as needed. Will avoid any anticoagulation on this patient. 4. Elevated troponins. Most probably type II event. No antiplatelet therapy because of underlying severe anemia. 5. Congestive heart failure exacerbation. Acute on chronic. Diastolic dysfunction. Continue diuresis. 6. Liver cirrhosis. Continue diuretics. Ammonia level within normal limits. 7. Borderline elevated hemoglobin A1c. The patient ideally needs to be started on metformin. If the patient's blood glucose levels are running high, she will be started on sliding scale insulin. 8. Fluids, electrolytes, and nutrition. NPO for colonoscopy. 9. DVT prophylaxis. Bilateral sequential compression devices. 10. Gastrointestinal prophylaxis. Proton pump inhibitors. 11. Plan. Await colonoscopy. Continue telemetry monitoring. Case discussed with . Problems: Subjective 24 Hr Interval Summary Free Text/Dictation Denies any complaints. Exam/Review of Systems Vital Signs Vitals Vital Signs Date Time Temp Pulse Resp B/P Pulse Ox O2 Delivery O2 Flow Rate FiO2 04/25/16 08:15 82 04/25/16 08:07 98.0 18 127/61 98 04/25/16 06:29 2.0 04/24/16 20:00 Nasal Cannula Intake and Output 04/24/16 04/24/16 04/25/16 15:00 23:00 07:00 Intake Total 200 ml 150 ml 2400 ml Output Total 450 ml Balance -250 ml 150 ml 2400 ml Exam GENERAL: This is an elderly female patient lying in bed in no apparent distress. HEENT: Head normocephalic and atraumatic. Eyes: Anicteric sclerae. Conjunctivae clear. ENT: Nasal septum is midline. Oral mucosa is dry. NECK: Supple. No JVD noticed. RESPIRATORY: Bilaterally diminished breath sounds. No use of accessory muscles of respiration. CARDIAC: Regular rate and rhythm. No obvious murmurs heard. ABDOMEN: Abdomen soft, nondistended. Bowel sounds hypoactive in all 4 quadrants. GENITOURINARY: Deferred. EXTREMITIES: No cyanosis, no clubbing. Bilateral lower extremity 1+ pitting edema. Peripheral pulses are palpable. NEUROLOGIC: The patient is awake, alert and oriented. Cranial nerves are grossly intact. Results Result Diagram: 04/25/16 0535 04/25/1635 Results 24 hrs Laboratory Tests Test 04/25/16 05:35 Activated Partial Thromboplast Time 40.3 H Anion Gap 13 Basophils # 0.0 Basophils % 0.0 Blood Morphology Comment Blood Urea Nitrogen 11 Calcium Level 8.3 L Carbon Dioxide Level 26 Chloride Level 106 Creatinine 0.55 Eosinophils # 0.1 Eosinophils % 2.3 Glucose Level 90 Hematocrit 30.4 L Hemoglobin 10.1 L INR International Normalized Ratio 1.73 Lymphocytes # 0.7 L Lymphocytes % 12.2 L Magnesium Level 1.9 Mean Corpuscular Hemoglobin 25.1 L Mean Corpuscular Hemoglobin Concent 33.2 Mean Corpuscular Volume 75.6 L Mean Platelet Volume 10.0 Monocytes # 0.6 Monocytes % 9.6 Neutrophils # 4.5 Neutrophils % 75.9 Nucleated Red Blood Cells # 0.0 Nucleated Red Blood Cells % 0.0 Phosphorus Level 2.9 Platelet Count 59 L Potassium Level 3.6 Prothrombin Time 20.4 H Prothrombin Time Ratio 1.6 Red Blood Count 4.02 L Red Cell Distribution Width 20.1 H Sodium Level 141 Troponin I 0.152 *H White Blood Count 5.9 # Medications Medications Current Medications Lorazepam (Ativan) 0.5 mg Q6H PRN IV ANXIETY; Start 04/22/16 at 15:30 Acetaminophen/ Hydrocodone Bitart ([place] (5/325)) 1 tab Q6H PRN PO PAIN LEVEL 4 -6; Start 04/22/16 at 15:30 Morphine Sulfate (morphine) 2 mg Q4H PRN IV PAIN LEVEL 7-10 Last administered on 04/23/16t 23:28; Admin Dose 2 MG; Start 04/22/16 at 15:30 Hydralazine HCl (Apresoline) 10 mg Q6H PRN IV SBP>160 Last administered on 04/24 22:53; Admin Dose 10 MG; Start 04/22/16 at 16:00 Lisinopril (Zestril) 20 mg DAILY PO Last administered on 04/25/16 09:21; Admin Dose 20 MG; Start 04/23/16 at 09:00 Spironolactone 50 mg 50 mg BID PO Last administered on 04/25/16 09:20; Admin Dose 50 MG; Start 04/22/16 at 21:00 Ceftriaxone Sodium 50 ml @ 100 mls/hr Q24H IVPB Last administered on 17:14; Admin Dose 100 MLS/HR; Start 04/22/16 at 16:30 Ferric Sodium Gluconate Complex/ Sodium Chloride (Ferrlecit/NS) 110 ml @ 100 mls/hr Q24H IVPB Last administered on 04/24/16 14:40; Admin Dose 100 MLS/HR; Start 04/23/16 at 10:00; Stop 04/25/16 at 11:05 Pantoprazole (Protonix Iv) 40 mg BID@06,18 IV Last administered on 04/25/16 06 :13; Admin Dose 40 MG; Start 04/24/16 at 18:00 Sucralfate (Carafate) 1 gm QID PO Last administered on 04/25/16 09:21; Admin Dose 1 GM; Start 04/24/16 at 09:00 SAMUEL HELMS NP Apr 25, 2016 10:44
[2016-04-25] MEDS: SOD FERRIC GLUC COMPLX 125 MG in SOD CHLORIDE 0.9% 100 ML IVPB SCH (12:17)
[2016-04-25] MEDS ORDERED: PROPOFOL 20 ML ONE (17:17)
[2016-04-25] MEDS: CEFTRIAXONE 1 GM/50 ML (PMX) 50 ML IVPB SCH (19:01)
--- NOTE | 2016-04-25 20:14 | CONS ---
Date/Time of Note Date/Time of Note DATE: 04/25/16 TIME: 20:13 Assessment/Plan Assessment/Plan Chief Complaint/Hosp Course Assessment: Chest pain and shortness of breath - likely due to severe anemia, now resolved with pRBC transfusions NSTEMI - suspect type 2 Anemia - unclear etiology, EGD negative for bleeding, status post pRBC transfusions Pancytopenia Hypertension Autoimmune hepatitis Liver cirrhosis Recommendations: -echocardiogram showed LVEF 55-60%, mild diastolic dysfunction -no antiplatelet or anticoagulant therapy given severe anemia and thrombocytopenia - as such and likely type 2 NSTEMI, no additional coronary evaluation at this time -follow up gastroenterology recommendations Problems: Consultation Date/Type/Reason Admit Date/Time Apr 22, 2016 at 15:04 Type of Consultation: Cardiology 24 HR Interval Summary Free Text/Dictation Had colonoscopy today, awaiting results. No chest pain or shortness of breath. Detailed Summary Additional Comments 14 point review of systems without changes. Exam/Review of Systems Vital Signs Vitals Vital Signs Date Time Temp Pulse Resp B/P Pulse Ox O2 Delivery O2 Flow Rate FiO2 04/25/16 19:53 98.0 83 20 146/65 94 04/25/16 18:48 2.0 28 04/25/16 18:02 Room Air Nasal Cannula Intake and Output 04/24/16 04/24/16 04/25/16 15:00 23:00 07:00 Intake Total 200 ml 150 ml 2400 ml Output Total 450 ml Balance -250 ml 150 ml 2400 ml Exam Constitutional: alert, well developed Psych: nl mood/affect, no complaints Head: atraumatic, normocephalic Eyes: nl conjunctiva, nl lids ENMT: nl external ears & nose, nl nasal mucosa & septum Neck: non-tender, supple, No jvd Respiratory: clear to auscultation, normal air movement Cardiovascular: regular rate and rhythm Gastrointestinal: non-tender, soft Musculoskeletal: nl extremities to inspection Extremities: No clubbing, No cyanosis, No edema Results Result Diagram: 04/25/1635 04/25/16 0535 Results 24 hrs Laboratory Tests Test 04/25/16 05:35 Activated Partial Thromboplast Time 40.3 H Anion Gap 13 Basophils # 0.0 Basophils % 0.0 Blood Morphology Comment Blood Urea Nitrogen 11 Calcium Level 8.3 L Carbon Dioxide Level 26 Chloride Level 106 Creatinine 0.55 Eosinophils # 0.1 Eosinophils % 2.3 Glucose Level 90 Hematocrit 30.4 L Hemoglobin 10.1 L INR International Normalized Ratio 1.73 Lymphocytes # 0.7 L Lymphocytes % 12.2 L Magnesium Level 1.9 Mean Corpuscular Hemoglobin 25.1 L Mean Corpuscular Hemoglobin Concent 33.2 Mean Corpuscular Volume 75.6 L Mean Platelet Volume 10.0 Monocytes # 0.6 Monocytes % 9.6 Neutrophils # 4.5 Neutrophils % 75.9 Nucleated Red Blood Cells # 0.0 Nucleated Red Blood Cells % 0.0 Phosphorus Level 2.9 Platelet Count 59 L Potassium Level 3.6 Prothrombin Time 20.4 H Prothrombin Time Ratio 1.6 Red Blood Count 4.02 L Red Cell Distribution Width 20.1 H Sodium Level 141 Troponin I 0.152 *H White Blood Count 5.9 # Medications Medications Current Medications Lorazepam (Ativan) 0.5 mg Q6H PRN IV ANXIETY; Start 04/22/16 at 15:30 Acetaminophen/ Hydrocodone Bitart ([place] (5/325)) 1 tab Q6H PRN PO PAIN LEVEL 4 -6; Start 04/22/16 at 15:30 Morphine Sulfate (morphine) 2 mg Q4H PRN IV PAIN LEVEL 7-10 Last administered on 04/23/16 23:28; Admin Dose 2 MG; Start 04/22/16 at 15:30 Hydralazine HCl (Apresoline) 10 mg Q6H PRN IV SBP>160 Last administered on 04/24 22:53; Admin Dose 10 MG; Start 04/22/16 at 16:00 Lisinopril (Zestril) 20 mg DAILY PO Last administered on 04/25/16 09:21; Admin Dose 20 MG; Start 04/23/16 at 09:00 Spironolactone 50 mg 50 mg BID PO Last administered on 04/25/16 09:20; Admin Dose 50 MG; Start 04/22/16 at 21:00 Ceftriaxone Sodium (Rocephin) 50 ml @ 100 mls/hr Q24H IVPB Last administered on 04/25/16 19:01; Admin Dose 100 MLS/HR; Start 04/22/16 at 16:30 Pantoprazole (Protonix Iv) 40 mg BID@06,18 IV Last administered on 04/25/16 19 :01; Admin Dose 40 MG; Start 04/24/16 at 18:00 Sucralfate (Carafate) 1 gm QID PO Last administered on 04/25/16 19:02; Admin Dose 1 GM; Start 04/24/16 at 09:00 ALYX AVITIA MD Apr 25, 2016 20:14
[2016-04-26] VITALS (10 sets, daily range): BP systolic 113–133; BP diastolic 48–64; PULSE 73–80; RESP 18–20
[2016-04-26] MEDS: PANTOPRAZOLE 40 MG INJ IV SCH (05:39)
[2016-04-26] MEDS: FUROSEMIDE 20 MG INJ IV SCH (05:39)
[2016-04-26 07:17] LABS: MAGNESIUM 1.8 mg/dl (1.7-2.5); PHOSPHORUS 3.4 mg/dl (2.5-4.9)
[2016-04-26 07:20] LABS: POTASSIUM 3.2 mmol/L (3.5-5.1)
[2016-04-26 07:22] LABS: CREATININE 0.63 mg/dl (0.44-1.00)
[2016-04-26 07:23] LABS: CALCIUM 8.2 mg/dl (8.4-10.2)
[2016-04-26 07:32] LABS: TROPONIN-I 0.16 ng/ml (0.00-0.12)
[2016-04-26 08:44] LABS: HEMATOCRIT 30.8 % (37.0-47.0); HEMOGLOBIN 10.2 g/dl (12.0-16.0); MEAN CORPUSCULAR HEMOGLOBIN 24.9 pg (29.0-33.0); MEAN CORPUSCULAR VOLUME 75.3 fl (82.0-101.0); MEAN PLATELET VOLUME 12.5 fl (7.4-10.4); PLATELET COUNT 72 10^3/UL (140-440); RED BLOOD COUNT 4.09 10^6/ul (4.20-5.40); RED CELL DISTRIBUTION WIDTH 21.4 % (11.5-14.5); SUSPECT 1
[2016-04-26 08:45] LABS: CONDITION 1; LH ANALYZER COMMENTS 1
[2016-04-26] MEDS: LISINOPRIL 20 MG TAB PO SCH (09:16)
[2016-04-26] MEDS: SPIRONOLACTONE 50 MG TAB PO SCH (09:16)
[2016-04-26] MEDS: SUCRALFATE 1 GM TAB PO SCH ×3 (09:16→16:45)
[2016-04-26 10:48] LABS: ANISOCYTOSIS 2+; EOSINOPHILS # 0.2 10^3/ul (0.0-0.5); LYMPHOCYTES # 1.4 10^3/ul (0.8-2.9); MICROCYTOSIS 2+; MONOCYTE # 0.4 10^3/ul (0.3-0.9); NEUTROPHIL # 3.1 10^3/ul (1.6-7.5)
[2016-04-26 10:49] LABS: HYPOCHROMASIA 2+; POIKILOCYTOSIS 1+; POLYCHROMASIA 2+; TARGET CELLS OCCASIONAL
[2016-04-26 10:50] LABS: PLATELET ESTIMATE PLT APPEAR DECREASED
--- NOTE | 2016-04-26 11:26 | PN ---
Date/Time of Note Date/Time of Note DATE: 04/26/16 TIME: 11:23 Assessment/Plan VTE Prophylaxis VTE Prophylaxis Intervention: ambulation Lines/Catheters IV [facility]from [facility]ine [facility] Urinary Cath still in place: No Assessment/Plan Assessment/Plan Assessment: Acute anemia * Colonoscopy tomorrow * Monitor hemoglobin every 6 hours, transfuse 2 units for hemoglobin less than 7.5 * Continue Protonix and octreotide drips * Stool OB 2 * Sp Colonoscopy 04-25-16: * Diverticulosis * Questionable mild proctitis. Biopsies obtained * Moderate sized internal hemorrhoids * Sp EGD 04-23-16: * No evidence of esophageal varices. * Probable atrophic gastropathy. Biopsies obtained. * Erosive gastritis in the antrum. Biopsies obtained. Hypertension Questionable history of cirrhosis Plan: * Continue present regimen review pathology * Review pathology is shortness available * Patient appears safe for outpatient follow-up from GI point of view Exam/Review of Systems Vital Signs Vitals Vital Signs Date Time Temp Pulse Resp B/P Pulse Ox O2 Delivery O2 Flow Rate FiO2 04/26/16 08:37 73 04/26/16 07:35 97.9 20 113/48 98 04/26/16 06:58 2.0 28 04/25/16 20:00 Nasal Cannula Intake and Output 04/25/16 04/25/16 04/26/16 15:00 23:00 07:00 Intake Total 70 ml 400 ml Balance 70 ml 400 ml Results Result Diagram: 04/26/16 0610 04/26/16 0610 Results 24 hrs Laboratory Tests Test 04/26/16 06:10 Anion Gap 14 Anisocytosis 2+ Basophils # Basophils % Blood Morphology Comment Blood Urea Nitrogen 12 Calcium Level 8.2 L Carbon Dioxide Level 26 Chloride Level 105 Creatinine 0.63 Eosinophils # 0.2 Eosinophils % 4.0 Giant Platelets OCCASIONAL Glucose Level 78 Hematocrit 30.8 L Hemoglobin 10.2 L Hypochromasia 2+ Large Platelets FEW Lymphocytes # 1.4 Lymphocytes % 27.0 Magnesium Level 1.8 Mean Corpuscular Hemoglobin 24.9 L Mean Corpuscular Hemoglobin Concent 33.0 Mean Corpuscular Volume 75.3 L Mean Platelet Volume 12.5 #H Microcytosis 2+ Monocytes # 0.4 Monocytes % 8.0 Neutrophils # 3.1 Neutrophils % 61.0 Nucleated Red Blood Cells # Nucleated Red Blood Cells % Phosphorus Level 3.4 Platelet Count 72 #L Platelet Estimate PLT APPEAR DECREASED Polychromasia 2+ Potassium Level 3.2 L Red Blood Count 4.09 L Red Cell Distribution Width 21.4 H Sodium Level 142 Target Cells OCCASIONAL Troponin I 0.160 *H White Blood Count 5.0 Medications Medications Current Medications Lorazepam (Ativan) 0.5 mg Q6H PRN IV ANXIETY; Start 04/22/16 at 15:30 Acetaminophen/ Hydrocodone Bitart ([place] (5/325)) 1 tab Q6H PRN PO PAIN LEVEL 4 -6; Start 04/22/16 at 15:30 Morphine Sulfate (morphine) 2 mg Q4H PRN IV PAIN LEVEL 7-10 Last administered on 04/23/16 23:28; Admin Dose 2 MG; Start 04/22/16 at 15:30 Hydralazine HCl (Apresoline) 10 mg Q6H PRN IV SBP>160 Last administered on 04/24 22:53; Admin Dose 10 MG; Start 04/22/16 at 16:00 Lisinopril (Zestril) 20 mg DAILY PO Last administered on 04/26/16 09:16; Admin Dose 20 MG; Start 04/23/16 at 09:00 Spironolactone 50 mg 50 mg BID PO Last administered on 04/26/16 09:16; Admin Dose 50 MG; Start 04/22/16 at 21:00 Ceftriaxone Sodium (Rocephin) 50 ml @ 100 mls/hr Q24H IVPB Last administered on 04/25/16 19:01; Admin Dose 100 MLS/HR; Start 04/22/16 at 16:30 Pantoprazole (Protonix Iv) 40 mg BID@06,18 IV Last administered on 04/26/16 05 :39; Admin Dose 40 MG; Start 04/24/16 at 18:00 Sucralfate (Carafate) 1 gm QID PO Last administered on 04/26/16 09:16; Admin Dose 1 GM; Start 04/24/16 at 09:00 OSMEL PERRY MD Apr 26, 2016 11:26
--- NOTE | 2016-04-26 14:16 | PDOCDIS ---
Discharge Instructions DIAGNOSIS Discharge Diagnosis: Symptomatic anemia. H pylori infection. CONDITION Patient Condition: Stable HOME CARE INSTRUCTIONS: Diet Instructions: 2gm Na FOLLOW UP/APPOINTMENTS Appointments Nii Herman MD Specialty: Internal Medicine Office Address: [address] [place], [place] [id number] Office OTHER ORDERS: Other Orders: 1. Take medications as per prescription. 2. Low-sodium diet as tolerated. 3. Follow-up with your primary care physician in one week. If you do not have a primary care physician, please call Dr. Nii Herman's office. 4. Resume activities as tolerated. 5. Call 911 or go to the nearest emergency room if you have any chest pain, significant shortness of breath, blood in stool or vomitus. SAMUEL HELMS NP Apr 26, 2016 14:16
[2016-04-26] MEDS ORDERED: SUCR1TAB27 PO (14:19)
[2016-04-26] MEDS ORDERED: AMO500 PO (14:19)
[2016-04-26] MEDS ORDERED: CLAR500T PO (14:19)
[2016-04-26] MEDS ORDERED: FER325 PO (15:21)
[2016-04-26] MEDS ORDERED: METF500T4 PO (15:21)
--- NOTE | 2016-04-26 15:23 | CONS ---
Date/Time of Note Date/Time of Note DATE: 04/26/16 TIME: 15:21 Assessment/Plan Assessment/Plan Chief Complaint/Hosp Course Assessment: Chest pain and shortness of breath - likely due to severe anemia, now resolved with pRBC transfusions NSTEMI - suspect type 2 Anemia and pancytopenia - suspect hematologic or autoimmune etiology, EGD and colonoscopy negative for bleeding Hypertension Autoimmune hepatitis Liver cirrhosis Recommendations: -echocardiogram showed LVEF 55-60%, mild diastolic dysfunction -no antiplatelet or anticoagulant therapy given severe anemia and thrombocytopenia - as such and likely type 2 NSTEMI, no additional coronary evaluation at this time -follow up gastroenterology recommendations Problems: Consultation Date/Type/Reason Admit Date/Time Apr 22, 2016 at 15:04 Type of Consultation: Cardiology 24 HR Interval Summary Free Text/Dictation No chest pain or shortness of breath. Hemoglobin stable at 10. Colonoscopy yesterday showed diverticulosis and internal hemorrhoids, without active bleeding. Detailed Summary Additional Comments 14 point review of systems without changes. Exam/Review of Systems Vital Signs Vitals Vital Signs Date Time Temp Pulse Resp B/P Pulse Ox O2 Delivery O2 Flow Rate FiO2 04/26/16 12:30 77 04/26/16 12:07 97.0 20 121/60 99 04/26/16 06:58 2.0 28 04/25/16 20:00 Nasal Cannula Intake and Output 04/25/16 04/25/16 04/26/16 15:00 23:00 07:00 Intake Total 70 ml 400 ml Balance 70 ml 400 ml Exam Constitutional: alert, well developed Psych: nl mood/affect, no complaints Head: atraumatic, normocephalic Eyes: nl conjunctiva, nl lids ENMT: nl external ears & nose, nl nasal mucosa & septum Neck: non-tender, supple, No jvd Respiratory: clear to auscultation, normal air movement Cardiovascular: regular rate and rhythm Gastrointestinal: non-tender, soft Musculoskeletal: nl extremities to inspection Extremities: No clubbing, No cyanosis, No edema Results Result Diagram: 04/26/16 0610 04/26/16 0610 Results 24 hrs Laboratory Tests Test 04/26/16 06:10 Anion Gap 14 Anisocytosis 2+ Basophils # Basophils % Blood Morphology Comment Blood Urea Nitrogen 12 Calcium Level 8.2 L Carbon Dioxide Level 26 Chloride Level 105 Creatinine 0.63 Eosinophils # 0.2 Eosinophils % 4.0 Giant Platelets OCCASIONAL Glucose Level 78 Hematocrit 30.8 L Hemoglobin 10.2 L Hypochromasia 2+ Large Platelets FEW Lymphocytes # 1.4 Lymphocytes % 27.0 Magnesium Level 1.8 Mean Corpuscular Hemoglobin 24.9 L Mean Corpuscular Hemoglobin Concent 33.0 Mean Corpuscular Volume 75.3 L Mean Platelet Volume 12.5 #H Microcytosis 2+ Monocytes # 0.4 Monocytes % 8.0 Neutrophils # 3.1 Neutrophils % 61.0 Nucleated Red Blood Cells # Nucleated Red Blood Cells % Phosphorus Level 3.4 Platelet Count 72 #L Platelet Estimate PLT APPEAR DECREASED Polychromasia 2+ Potassium Level 3.2 L Red Blood Count 4.09 L Red Cell Distribution Width 21.4 H Sodium Level 142 Target Cells OCCASIONAL Troponin I 0.160 *H White Blood Count 5.0 Medications Medications Current Medications Lorazepam (Ativan) 0.5 mg Q6H PRN IV ANXIETY; Start 04/22/16 at 15:30 Acetaminophen/ Hydrocodone Bitart ([place] (5/325)) 1 tab Q6H PRN PO PAIN LEVEL 4 -6; Start 04/22/16 at 15:30 Morphine Sulfate (morphine) 2 mg Q4H PRN IV PAIN LEVEL 7-10 Last administered on 04/23/16 23:28; Admin Dose 2 MG; Start 04/22/16 at 15:30 Hydralazine HCl (Apresoline) 10 mg Q6H PRN IV SBP>160 Last administered on 04/24 22:53; Admin Dose 10 MG; Start 04/22/16 at 16:00 Lisinopril (Zestril) 20 mg DAILY PO Last administered on 04/26/16 09:16; Admin Dose 20 MG; Start 04/23/16 at 09:00 Spironolactone 50 mg 50 mg BID PO Last administered on 04/26/16 09:16; Admin Dose 50 MG; Start 04/22/16 at 21:00 Ceftriaxone Sodium (Rocephin) 50 ml @ 100 mls/hr Q24H IVPB Last administered on 04/25/16 19:01; Admin Dose 100 MLS/HR; Start 04/22/16 at 16:30 Pantoprazole (Protonix Iv) 40 mg BID@06,18 IV Last administered on 04/26/16 05 :39; Admin Dose 40 MG; Start 04/24/16 at 18:00 Sucralfate (Carafate) 1 gm QID PO Last administered on 04/26/16 13:14; Admin Dose 1 GM; Start 04/24/16 at 09:00 Potassium Chloride (Klor-Con 10) 30 meq ONCE ONCE PO ; Start 04/26/16 at 15:30 ; Stop 04/26/16 at 15:31 ALYX AVITIA MD Apr 26, 2016 15:23
[2016-04-26] MEDS ORDERED: POTASSIUM CHLORIDE (SR) 10 MEQ TAB PO ONE (15:30)
--- NOTE | 2016-04-26 16:06 | DS ---
DATE OF ADMISSION: 04/22/2016 DATE OF DISCHARGE: 04/26/2016 FINAL DIAGNOSES: 1. Symptomatic microcytic,hypochromic anemia. 2. Status post sepsis secondary to urinary tract infection. 3. Urinary tract infection. 4. Coagulopathy with an elevated INR and low platelet count. 5. History of autoimmune liver cirrhosis. 6. Elevated troponins. Most probably type 2 event. 7. Congestive heart failure exacerbation. 8. Acute on chronic diastolic dysfunction. 9. H. pylori infection. 10. Borderline elevated hemoglobin A1c. 11. Essential hypertension. 12. Iron deficiency. CONSULTATIONS: 1. Dr. Casey Yao, Gastroenterology. 2. Dr. Ezio Tang, Cardiology. HOSPITAL COURSE: This is a 70-year-old female with a past medical history of essential hypertension, autoimmune liver cirrhosis, esophageal varices and gastric ulcers, who came to the emergency room with a chief complaint of dyspnea, generalized weakness and chest pain that has been going on since 04/18/2016. As per the patient, she went to see her primary care physician on 04/18/2016. At that time, she was told that her hemoglobin level was low. However, the patient does not remember what exactly her hemoglobin level was. On 04/18/2016, the patient was instructed to go to the nearest emergency room. Nevertheless, the patient did not seek immediate medical attention on 04/18/2016, until she arrived at [facility] Emergency Room on 04/22/2016. The patient denied any hematemesis, hematochezia or melena. The patient's initial workup showed that the patient had a hemoglobin and hematocrit of 4.7 and 15.6, respectively. The patient was also noted to have lactic acidosis. The patient's initial troponin was 0.241, with a BNP of 694. Provided the patient's history of present illness, her comorbidities, and the diagnostic findings, a clinical decision was made to admit the patient to the inpatient setting to have her further evaluated. The patient was admitted to the inpatient intensive care unit. A cardiology consult and a gastroenterology consult was called. The patient was started on a Protonix and octreotide drip. The patient was given multiple blood transfusions, a total of 4 units of PRBCs, with improvement in the patient's H and H. The patient was also noticed to have iron deficiency. The patient was maintained on iron supplements for the same. The patient underwent a esophagogastroduodenoscopy on 04/23/2016 that showed no evidence of esophageal varices, but erosive gastritis and probable atrophic gastropathy. The patient's gastric biopsy specimen was positive for Helicobacter pylori. The patient also underwent a colonoscopy on 04/25/2016 that showed diverticulosis and questionable mild proctitis. The patient's anemia improved with proton pump inhibitor therapy and blood transfusion. The etiology of the patient's anemia could be a combination of factors, including her underlying H. pylori infection and iron deficiency. As mentioned earlier, the patient was noticed to have elevated troponins upon presentation. Hence, cardiology was following the patient. The patient was not started on any antiplatelet therapy because of her underlying anemia. The patient's serial troponins were concluded to be the cause of her demand ischemia secondary to severe anemia. The patient underwent a 2D echocardiogram that showed a preserved left ventricular ejection fraction. The patient has underlying essential hypertension. The patient was maintained on antihypertensives for the same. The patient was also noticed to have diastolic heart failure. The patient was maintained on diuretics for the same. The patient has a history of autoimmune liver cirrhosis. The patient was maintained on diuretics. The patient's ammonia levels were within normal limits. The patient was also noticed to have a borderline elevated hemoglobin A1c of 6.7. The patient will be started on metformin The patient was also noticed to have coagulopathy, with an elevated INR and a low platelet count, most probably secondary to her history of liver cirrhosis. The patient was moved out of the intensive care unit once her H and H were stable. The patient had a stable hospital course and the patient was cleared by the consultants to be discharged home. The patient denied any complaints at the time of discharge. DISCHARGE DISPOSITION/PLAN: The patient will be discharged home today. The patient was instructed to take her medications as per prescription. The patient was instructed to follow a low sodium diet as tolerated. The patient was instructed to follow up with her primary care physician in 1 week, and if she does not have a primary care physician, to please call Dr. Nii Herman's office. The patient was instructed to resume her activities as tolerated. She was instructed to call 911 or go to the nearest emergency room if she has any chest pain, significant shortness of breath, or blood in the stool or vomitus. The patient verbalized understanding of her discharge instructions. CONDITION AT DISCHARGE: Stable. DISCHARGE MEDICATIONS: 1. Amoxicillin 1000 mg p.o. b.i.d. x14 days. 2. Clarithromycin 500 mg p.o. b.i.d. x14 days. 3. Carafate 1 gram p.o. q.i.d. 4. Lasix 20 mg p.o. daily. 5. Lisinopril 20 mg p.o. daily. 6. Protonix 40 mg p.o. b.i.d. 7. Aldactone 50 mg p.o. b.i.d. 8. FeSO4 325 mg p.o. b.i.d. 9. Metformin 500 mg mg p.o. b.i.d. with meals. PERTINENT LABORATORY AND DIAGNOSTIC DATA: 1. 2D echocardiogram. Ejection fraction of 55% to 60%. Mild left ventricular diastolic dysfunction. Mild left atrial enlargement. Estimated peak PA systolic pressure of 33 mmHg. 2. Esophagogastroduodenoscopy. No evidence of esophageal varices. Probable atrophic erosive gastritis in the antrum. 3. Colonoscopy. Questionable mild proctitis. Moderate-sized internal hemorrhoids. 4. Latest chest x-ray on 04/24/2016. Increasing bilateral airspace opacities. Pneumonia versus pulmonary edema. 5. Bilateral lower extremity venous Doppler study. No evidence of DVT. 6. Latest CBC: WBC 5.0, hemoglobin 10.1, hematocrit 30.8, platelet count 72. 7. Latest BMP: Sodium 142, potassium 3.2, chloride 105, carbon dioxide 26, anion gap 14, BUN 12, creatinine 0.63, glucose 78, calcium 8.2, phosphorus 3.4, magnesium 1.8. 8. Hemoglobin A1c 6.7. 9. Fasting lipid panel: Triglycerides 48, total cholesterol 71, LDL 44, HDL 17. 10. Alpha fetoprotein 2.99. 11. Iron panel: Iron 41, TIBC 284, iron saturation 14, ferritin 7.8. At this time, I would like to thank all the consultants for seeing the patient, doing the necessary procedures, and providing clinical recommendations. The case and management of this patient was fully discussed with Dr. Gonzalez. Approximately 40 minutes was spent on coordinating the discharge on this patient. SAMUEL GONZALEZ MD, AM/ANNIE Conf#: [id number] [facility]#: [id number] MTDD
[2016-04-26] MEDS: CEFTRIAXONE 1 GM/50 ML (PMX) 50 ML IVPB SCH (16:45)
[2016-04-26] MEDS ORDERED: PANTOPRAZOLE (EC) 40 MG TAB PO SCH (18:00)
--- NOTE | 2016-04-29 08:59 | GILP ---
DATE OF PROCEDURE: 04/25/2016 NAME OF PROCEDURE: Colonoscopy with biopsies. SURGEON: Osmel Yao MD PREOPERATIVE DIAGNOSIS(ES) POSTOPERATIVE DIAGNOSIS(ES) BRIEF HISTORY AND INDICATIONS: The patient is be evaluated for severe anemia. PREMEDICATION: Monitored anesthesia care by anesthesiologist. INSTRUMENT USED: Olympus colonoscope. PREPARATION: Adequate. TECHNIQUE: After informed consent, with the patient/relatives understanding the procedure, its indic ations potential risks and complications, including but not limited to: allergic reaction, bleeding, perforation, infection, missed lesions and after all pertinent questions were answered to the patie nt's satisfaction, the patient/relatives signed the witnessed informed consent. Following this, premedication was administered slowly IV push by under careful cardiovascular and re spiratory monitoring with pulse oximetry, automatic blood pressure and ekg monitor. Once the sedativ e effect was achieved, the patient was placed in the left lateral decubitus position, digital rectal examination was performed. The colonoscope was then introduced and advanced under visual control th roughout all segments of the colon including: the rectum, sigmoid, descending colon, splenic flexure , transverse colon, hepatic flexure, ascending colon and finally reaching the cecum which was clearl y identified by transillumination, finger indentation and the ileocecal valve. Careful examination o f the mucosa of the lower gastrointestinal tract both on insertion as well as withdrawal of the inst rument disclosed the following findings: Rectal Examination: Small external hemorrhoids are noted. Colonic Mucosa: The colonic mucosa is remarkable for mild erythema in the area of the rectum which may represent preparation artifact. Biopsies were obtained. The remainder of the colonic mucosa unremarkable throughout. The ileocecal valve was clearly identi fied and appears unremarkable. The instrument was withdrawn. On withdrawal of the instrument, no a dditional abnormalities were noted. Biopsies were obtained of the area of the rectum. Moderate-siz ed internal hemorrhoids are noted on withdrawal of the instrument through the anal canal on retrofle xion. The instrument was then withdrawn, the patient tolerated the procedure well and was transferred out of the Endoscopy Suite awake and in good condition to continue recovery under observation. IMPRESSION: 1. Questionable proctitis versus prep artifact. Biopsies obtained. 2. Diverticulosis, left side of the colon. 3. Moderate-sized internal hemorrhoids. PLAN: The patient will followed up. Her diet will be advanced. Pathology will be reviewed as soon as available. Further recommendation will depend on her clinical course. Annual Hemoccult stool t esting is recommended. Colonoscopy in 10 years is recommended. Dictated By: OSMEL YAO MS/ANNIE Conf#: [id number] DID#: [id number]
== END 2016-04-26 17:33 | disposition home or self-care (01) | DRG 871 ==
LOC: E/R 12:55 → ICU 15:04 → TEL 04-24 11:39
PROVIDERS: ADMIT Family Medicine; ATTEND Family Medicine
PROC: 30233N1 Transfusion of Nonautologous Red Blood Cells into Peripheral Vein, Percutaneous Approach (ICD-10-PCS; 2016-04-22)
PROC: 0DB68ZX Excision of Stomach, Via Natural or Artificial Opening Endoscopic, Diagnostic (ICD-10-PCS; principal; 2016-04-23 17:30)
PROC: 0DBP8ZX Excision of Rectum, Via Natural or Artificial Opening Endoscopic, Diagnostic (ICD-10-PCS; 2016-04-25)
DX: A41.9 Sepsis, unspecified organism (principal); I50.33 Acute on chronic diastolic (congestive) heart failure; I21.4 Non-ST elevation (NSTEMI) myocardial infarction; D61.818 Other pancytopenia; D68.9 Coagulation defect, unspecified; E87.2 Acidosis; A04.8 Other specified bacterial intestinal infections; K92.2 Gastrointestinal hemorrhage, unspecified; K74.60 Unspecified cirrhosis of liver; N39.0 Urinary tract infection, site not specified; I10 Essential (primary) hypertension; K57.30 Diverticulosis of large intestine without perforation or abscess without bleeding; K64.8 Other hemorrhoids; K29.60 Other gastritis without bleeding; K75.4 Autoimmune hepatitis; D50.8 Other iron deficiency anemias; K29.00 Acute gastritis without bleeding; R73.09 Other abnormal glucose; E87.6 Hypokalemia; Z87.11 Personal history of peptic ulcer disease
CPT/HCPCS: 36415; 36430; 71010; 80048; 80053; 80061; 81003; 82105; 82140; 82550; 82553; 82728; 83036; 83540; 83605; 83735; 83880; 84100; 84439; 84443; 84484; 85014; 85018; 85025; 85610; 85730; 86850; 86900; 86901; 86920; 87040; 87081; 87086; 87400; 88305; 88312; 93005; 93306; 93970; 96374; 96375; 96376; J1940; C9113; J0360; J0696; J2250; J2270; J2543; J2916; J3480; J7070; P9016

== ENCOUNTER 2016-09-17 21:50 | Emergency (ER) | payer MEDICAID ==
[~2016-09-17] VITALS: Wt 52.0 kg
[~2016-09-17 21:50] MED LIST changes: +AMO500 PO; -CARAS PO; +CLAR500T PO; -DOCU-144 PO; +FER325 PO; +FURO20TA3 PO; -LAS20I PO; -LISI-524 PO; +LISI20TA11 PO; +METF500T4 PO; +SUCR1TAB27 PO
[2016-09-17] MEDS ORDERED: AMOXICILLIN/CLAV 875 MG TAB PO ONE (22:30)
[2016-09-17] MEDS ORDERED: KETOROLAC 15 MG INJ IV STA (22:32)
--- NOTE | 2016-09-18 00:38 | ERD ---
ER Documentation Chief Complaint Date/Time DATE: 09/18/16 TIME: 00:23 Chief Complaint Sore throat and Right ear pain. Unable to drink or eat x6 days HPI This pleasant 71-year-old female presents to the emergency department today with right ear pain jaw pain and throat pain 6 days. Patient reports difficulty eating and drinking related to pain, pain is described as a sharp pulling sensation with swallowing. Patient denies nausea vomiting fever or chills. Patient denies chest pain, shortness of breath, palpitation, or dizziness. Patient has not tried any [id number] medication for symptomatic relief, denies any sick contacts. ROS All systems reviewed and are negative except as per history of present illness. Medications Home Meds Active Scripts Ferrous Sulfate* (Ferrous Sulfate*) 325 Mg Tabec, 325 MG PO BID for 30 Days, TAB Prov:SAMUEL HELMS NP 04/26/16 Metformin* (Glucophage*) 500 Mg Tab, 500 MG PO BID WITH MEALS for 30 Days, #90 TAB Prov:SAMUEL HELMS NP 04/26/16 Clarithromycin* (Clarithromycin*) 500 Mg Tablet, 500 MG PO BID for 14 Days, TAB Prov:SAMUEL HELMS NP 04/26/16 Amoxicillin* (Amoxicillin*) 500 Mg Cap, 1000 MG PO BID for 14 Days, #20 CAP Prov:SAMUEL HELMS NP 04/26/16 Sucralfate (Carafate) 1 Gm Tablet, 1 GM PO QID for 30 Days, TAB Prov:SAMUEL HELMS NP 04/26/16 Pantoprazole (Protonix) 40 Mg Tabec, 40 MG PO BID for 30 Days, TAB Prov:SILVIANO PAREDES MD 08/16/14 Reported Medications Lisinopril* (Lisinopril*) 20 Mg Tablet, 20 MG PO DAILY, #30 TAB 04/22/16 Spironolactone* (Aldactone*) 50 Mg Tablet, 50 MG PO BID, #60 TAB 04/22/16 Furosemide* (Furosemide*) 20 Mg Tablet, 20 MG PO DAILY, #60 TAB 04/22/16 Allergies Allergies: Coded Allergies: No Known Allergy (Unverified , 04/22/16) PMhx/Soc History of Surgery: No Anesthesia Reaction: No Hx Neurological Disorder: No Hx Respiratory Disorders: No Hx Cardiac Disorders: No Hx Psychiatric Problems: No Hx Miscellaneous Medical Probl: No Hx Alcohol Use: No Hx Substance Use: No Hx Tobacco Use: No Smoking Status: Never smoker Physical Exam Vitals Vital Signs Date Time Temp Pulse Resp B/P Pulse Ox O2 Delivery O2 Flow Rate FiO2 09/17/16 21:59 98.7 79 22 172/61 96 Vitals stable, triage notes reviewed Physical Exam Const: Obvious discomfort, no acute distress Head: Atraumatic Eyes: Normal Conjunctiva, PERRLA, EOMI ENT: Lateral tympanic membranes translucent, auditory canals are clear, nasal mucosa moist, pharynx bright angry red, left tonsillar pillar swollen with exudate, uvula is midline without shift. Rises and falls with pronation. Neck: Full range of motion..~ No meningismus. Resp: Clear to auscultation bilaterally no rales wheezes or rhonchi Cardio: Abd: Soft, non tender, non distended, no hepatosplenomegaly. Skin: No petechiae or rashes Back: Ext: Neur: Awake and alert Psych: Normal Mood and Affect Results 24 hrs Current Medications Medications (Trade) Dose Ordered Sig/Fran Route PRN Reason Start Time Stop Time Status Last Admin Dose Admin Amoxicillin/ Clavulanate Potassium (Augmentin) 875 mg ONCE ONCE PO 09/17/16 22:30 09/17/16 22:33 DC 09/17/16 23:02 Ketorolac Tromethamine (Toradol) 15 mg ONCE STAT IV 09/17/16 22:32 09/17/16 22:33 DC 09/17/16 23:02 Procedures/MDM This pleasant 71-year-old female presenting to emergency department today with right ear pain, right jaw pain, throat pain. Started 6 days ago with progressive worsening, patient reports pain with swallowing, decreased appetite , pain is described as a sharp pulling. Patient denies fever. Thyroid mass, oropharyngeal cancer, Aphthous stomatitis not suspected. Tonsillar abscess considered but without shift and uvula unlikely strep pharyngitis Centor score 11-17% probability of strep pharyngitis. Regardless of Centor score I have decided to treat exudative tonsillar swelling with Augmentin, first dose provided in emergency department, pain treatment with Toradol intramuscularly. Patient reassessed after 60 minutes reports improvement in his symptoms but pain still continues with swallowing. Patient will be discharged home with Augmentin 875 mg twice daily 10 days, promethazine with codeine for pain. Instructed to follow-up with primary care physician, and return to emergency room in 24-48 hours if symptoms fail to improve as expected, ultrasound would be performed. Patient in room with daughter agrees with plan of care. I feel the patient is stable for discharge at this time. I have discussed results, examination findings, the treatment plan with the patient and family present prior to discharge. Indications for emergent reevaluation, side effects of medication were also discussed. All questions were answered. Patient verbalizes understanding and agrees with plan of care. Departure Diagnosis: Primary Impression: Tonsillitis with exudate Condition: Good Patient Instructions: Self-Care for Sore Throats Additional Instructions: Thank you for for coming to [facility] for your care today. Please ask your nurse or provider if you have questions about your care today and do not leave until all your questions have been answered. Please use any medications given as directed and follow-up with your doctor (or the doctor you were referred to) in the next 2-3 days. If you do not have a primary care doctor you may follow up at the [facility] (listed below). You may also use motrin and tylenol as needed for fever and/or pain unless instructed otherwise by your provider or nurse. Indications for more urgent follow-up have been discussed, but you may return to the Emergency Department at ANY time for any worrisome or worsening symptoms. If you have abdominal pain, please know that no test or exam you received is perfect and you should follow up within 8 hours for continued pain. If you had any imaging studies today, such as an X-Ray or CT Scan, these studies will be reviewed later by a radiologist. You will be called if there are important findings that were not identified today, so make sure the contact information you provided at registration is correct. If you received any narcotic pain control medicine today, such as Vicodin, Morphine or Dilaudid, your coordination and judgment may be affected for a number of hours. Please do not drive or operate heavy machinery, and you may want someone to assist you at home. If you were given a prescription for narcotic medication, be aware that it is very addictive- use sparingly and only if necessary. JASON CASTAÑEDA Sep 18, 2016 00:37
[2016-09-18] MEDS ORDERED: AMOX1TAB10 PO (00:39)
[2016-09-18] MEDS ORDERED: PROM5SYR2 PO (00:41)
== END 2016-09-18 02:10 | disposition home or self-care (01) ==
LOC: FTE 21:50
DX: J03.90 Acute tonsillitis, unspecified (principal); Z79.84 Long term (current) use of oral hypoglycemic drugs
CPT/HCPCS: J1885; Z7610; 96374